=== PATIENT | male | born 1940 | race African-American/Black ===

== ENCOUNTER 2018-07-16 16:37 | Inpatient (IN) | payer OTHER ==
[2018-07-16 21:20] VITALS: BP 136/88; PULSE 98; RESP 18
--- NOTE | 2018-07-16 23:47 | HP ---
Date/Time of Note Date/Time of Note DATE: 07/16/18 TIME: 23:47 Assessment/Plan VTE Prophylaxis Pharmacological prophylaxis: heparin Assessment/Plan Hospital Course This is a 77-year-old male [facility]: #1 right lower extremity cellulitis: Appears resolved as I do not see any evidence of swelling or erythema or redness. At the current time we will co ntinue Keflex 500 mg p.o. every 6 hours, he recently started this on 07/15 for a total 7-day regimen. 2. 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 This is thought to be secondary to small vessel disease in setting of his hypertension hyperlipidemia. Patient will schedule as an outpatient to have a TTE on 08/04/2018 and MRA of the neck. He is otherwise stroke workup was done and PT OT saw the patient in signed off on him and noted that the patient requires supervision. PT OT in their note at the transfer facility reported: At this point patient appears to require supervision with daily activities due to impulsiveness and risk of falls and will require placement. Continue aspirin and statin. Further neurological workup and TTE and MRI as an outpatient. Next History of choreoathetotic movements chronic: Apparently patient has been having orthotic movement for the last 5 years. Recommend patch the left eye. Dementia: MRI of the brain showed global decrease in cortex. Apparently as per the note patient did not require assistance with ADLs. But does require supervision. BPH: Continue tamsulosin CKD stage II creatinine baseline was 1.1. Hyperlipidemia: Continue statin DVT GI prophylaxis: Heparin subcu, no GI prophylaxis indicated Disposition: PTT/OT and social work consult for placement. Continue antibiotics. Next Further treatment strategy will be implemented as per the clinical course. HPI/ROS Admit Date/Time Admit Date/Time Jul 16, 2018 at 21:06 Hx of Present Illness Chief complaint sent by [facility] for cellulitis and placement The following history was obtained from the chart documentation as patient himself was not able to provide adequate history given his history of dementia as well as current somnolent states given that he received Ativan prior to him being transferred. This is a 77-year-old male with a medical history of left midbrain stroke and cranial nerve III palsy hypertension, CKD stage II hyperlipidemia and dementia who originally presented to [facility] emergency room with complaints of right lower leg swelling times several weeks. He was reporting at that time that her he is homeless based on the documentation. Based on the charting the patient had been admitted to [facility] for an extended period of time and discharged on 06/10. Patient apparently had reported that he had increased swelling and erythema over the last few days but it was unclear for how long he had. He denied any fevers chills nausea vomiting or cough. Patient was able to ambulate there and he was alert and oriented x2 at baseline. Based on the chart documentation patient was last admitted on 01/2018 through 11/2017 to [facility] for chronic dizziness. He was cleared by PT/OT for assist device and the original plan was to have social work to find placement for him due to cognitive impairment however because the surgeon due to being too long he was discharged to a group home. Apparently based on the social work note on 05/27/122017 the and medicine team there was planning to sign conservatorship form for the patient. He had reported to them that he had apparently not taken any medications for 3 months. When he arrived to the emergency department he was afebrile and hemodynamically stable. He was nontoxic-appearing. He had right lower extremity erythema involving the great toe to the lower leg with mild edema proximally. He was started on Keflex for cellulitis. He had a negative CRP lactate and leukocytosis. 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 He has been homeless for the last year and has been living out of his truck. He reports that he requires help with ADLs. ROS Subjective hx not possible: other (Somnolent, arousable but not able to provide information at the current time) PMH/Family/Social Past Medical History Dementia, hypertension, hyperlipidemia, multiple UTIs, BPH, movement disorder, and left midbrain stroke with residual cranial nerves III and palsy. 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 He has been homeless for the last year and has been living out of his truck. He reports that he requires help with ADLs. Smoking Status: Unknown if ever smoked Exam/Review of Systems Vital Signs Vitals Vital Signs Date Temp Pulse Resp B/P (MAP) Pulse Ox O2 O2 Flow FiO2 Time Delivery Rate 07/16/18 97.7 98 18 136/88 98 21:20 (104) Exam Exam General: Patient is currently lying in bed he does not appear to be in any acute distress. He is somnolent but arousable however not currently answering questions. HEENT: Atraumatic, normocephalic. Unable to assess palsy as patient at the current time is not allowing to open his eyes. Neck: Supple with full range of motion. No rigidity or meningismus Chest: Nontender Lungs: Clear to auscultation bilaterally no crackles rales or wheezing Heart: Normal S1-S2, Regular rhythm and rate. Abdomen: Soft , nontender, nondistended , bowel sounds are present. No guarding no rebound tenderness , No masses or organomegaly. No costovertebral temporal angle mass Extremities: Normal to inspection, no edema no cyanosis Skin: Right lower extremity cellulitis appears to have resolved as I do not notice any swelling or erythema or redness or tenderness to palpation along the described site from the transferring hospital. Neurologic: Somnolent but arousable. Unable to perform full neurological examination as patient is somnolent and not allowing for neurological examination. JACQUES DENNIS Jul 16, 2018 23:47
[2018-07-17] MEDS ORDERED: NACL 0.9% 3 ML SYG IV SCH
[2018-07-17] MEDS ORDERED: ONDANSETRON 4 MG INJ IV PRN
[2018-07-17] MEDS ORDERED: ACETAMINOPHEN 325 MG TAB PO PRN
[2018-07-17] MEDS ORDERED: BISACODYL (EC) 5 MG TAB PO PRN
[2018-07-17] MEDS ORDERED: DOCUSATE SODIUM 100 MG CAP PO PRN
[2018-07-17] MEDS ORDERED: CEPHALEXIN 500 MG CAP PO SCH (00:30)
[2018-07-17] MEDS: HEPARIN 5,000 UNIT/1 ML VIAL SC SCH ×4 (01:14→22:30)
[2018-07-17 02:00] VITALS: BP 109/56; PULSE 89; RESP 18
[2018-07-17] MEDS: CEPHALEXIN 500 MG CAP PO SCH ×3 (02:50→11:57)
[2018-07-17] MEDS ORDERED: HALOPERIDOL 5 MG INJ IM ONE (04:30)
[2018-07-17 08:41] VITALS: BP 135/73; PULSE 104; RESP 18
--- NOTE | 2018-07-17 14:35 | PN ---
Date/Time of Note Date/Time of Note DATE: 07/17/18 TIME: 14:33 Assessment/Plan VTE Prophylaxis Risk score (from Ns)>0 risk: 4 SCD applied (from Ns): Yes Pharmacological prophylaxis: heparin Lines/Catheters Urinary Cath still in place: No Assessment/Plan Hospital Course 77 yo male with h/o vascular dementia admitted for placement - dc abx - CM consult for placement vascular dementia s/p CVA: - Continue aspirin and statin, BP control Result Diagram: 07/17/18 0026 07/17/18 0026 Results 24hrs Laboratory Tests Test 07/17/18 00:26 White Blood Count 7.6 Red Blood Count 4.09 L Hemoglobin 13.4 L Hematocrit 39.4 L Mean Corpuscular Volume 96.3 Mean Corpuscular Hemoglobin 32.8 Mean Corpuscular Hemoglobin Concent 34.0 Red Cell Distribution Width 11.6 Platelet Count 235 Mean Platelet Volume 9.4 Immature Granulocytes % 0.400 Neutrophils % 65.2 Lymphocytes % 21.9 Monocytes % 10.8 Eosinophils % 1.2 Basophils % 0.5 Nucleated Red Blood Cells % 0.0 Immature Granulocytes # 0.030 Neutrophils # 5.0 Lymphocytes # 1.7 Monocytes # 0.8 Eosinophils # 0.1 Basophils # 0.0 Nucleated Red Blood Cells # 0.0 Sodium Level 138 Potassium Level 4.0 Chloride Level 101 Carbon Dioxide Level 27 Anion Gap 10 Blood Urea Nitrogen 16 Creatinine 0.79 Est Glomerular Filtrat Rate mL/min Glucose Level 139 Hemoglobin A1c 6.3 H Calcium Level 9.2 Magnesium Level 2.0 Total Bilirubin 0.4 Direct Bilirubin 0.00 Indirect Bilirubin 0.4 Aspartate Amino Transf (AST/SGOT) 35 Alanine Aminotransferase (ALT/SGPT) 30 Alkaline Phosphatase 58 Total Protein 7.4 Albumin 3.7 Globulin 3.70 H Albumin/Globulin Ratio 1.00 Triglycerides Level 98 Cholesterol Level 167 LDL Cholesterol, Calculated 96 HDL Cholesterol 51 Cholesterol/HDL Ratio 3.2 Thyroid Stimulating Hormone (TSH) 0.297 L Subjective 24 Hr Interval Summary Free Text/Dictation no complaints comfortable Exam/Review of Systems Vital Signs Vitals Vital Signs Date Temp Pulse Resp B/P (MAP) Pulse Ox O2 O2 Flow FiO2 Time Delivery Rate 07/17/18 98.3 104 18 135/73 94 08:41 (93) Intake and Output 07/16/18 07/16/18 07/17/18 1515:00 23:00 07:00 IntakeIntake Total 50 ml BalanceBalance 50 ml Medications Medications Current Medications IV Flush (NS 3 ml) 3 ml PER PROTOCOL IV ; Start 07/17/18 at 00:00 Ondansetron HCl (Zofran Inj) 4 mg Q6H PRN IV NAUSEA AND/OR VOMITING; Start 07/17/18 at 00:00 Acetaminophen (Tylenol Tab) 650 mg Q6H PRN PO PAIN LEVEL 1-3 OR FEVER; Start 07/17/18 at 00:00 Docusate Sodium (Colace) 100 mg Q12H PRN PO CONSTIPATION; Start 07/17/18 at 00:00 Bisacodyl (Dulcolax) 5 mg DAILY PRN PO CONSTIPATION; Start 07/17/18 at 00:00 Heparin Sodium (Porcine) (Heparin (5000 Units/1ml)) 5,000 unit Q8 SC Last admi nistered on 07/17/18at 13:50; Admin Dose 5,000 UNIT; Start 07/17/18 at 00:00 Cephalexin (Keflex) 500 mg Q6 PO Last administered on 07/17/18at 11:57; Admin Dose 500 MG; Start 07/17/18 at 02:31 Influenza Virus Vaccine Quadrival (Fluzone) 0.5 ml ONCE ONCE IM* ; Start 07/18/18 at 10:00; Stop 07/18/18 at 10:01 Miscellaneous Information Patients own medicat... BID@ XX ; Start 07/17/18 at 16:00 DESIRE CHENG MD Jul 17, 2018 14:35
[2018-07-17 14:46] VITALS: BP 132/77; PULSE 85; RESP 19
[2018-07-17] MEDS: ASPIRIN 81 MG TAB PO SCH (15:14)
[2018-07-17] MEDS: QUETIAPINE 25 MG TAB PO SCH ×2 (15:14→22:30)
[2018-07-17] MEDS: ATORVASTATIN 40 MG TAB PO SCH (20:17)
[2018-07-17 20:23] VITALS: BP 140/65; PULSE 83; RESP 20
[2018-07-18 02:06] VITALS: BP 129/60; PULSE 80; RESP 18
[2018-07-18] MEDS: HEPARIN 5,000 UNIT/1 ML VIAL SC SCH ×3 (06:24→21:30)
[2018-07-18 07:55] VITALS: BP 131/86; PULSE 84; RESP 18
[2018-07-18] MEDS: ASPIRIN 81 MG TAB PO SCH (10:08)
[2018-07-18] MEDS: QUETIAPINE 25 MG TAB PO SCH ×2 (10:08→20:37)
--- NOTE | 2018-07-18 11:57 | PSY ---
Date/Time of Note Date/Time of Note DATE: 07/18/18 TIME: 11:53 Psychiatric Subjective Eval Consent Pt consented to telemedicine: No Subjective Evaluation Patient location: inpatient History of present illness Patient is a 77-year-old male with a medical history of stroke, hypertension, CKD stage II and hyperlipidemia. [id number] evaluation, patient is disorganized confused goes up from times and cannot process information. Patient is in poor contact with reality Past psychiatric history Patient is a poor historian and does not know if he has any history of mental illness Allergies: Coded Allergies: Unknown: Unable to obtain (Unverified , 07/16/18) Substance Abuse Substance use: other (Unknown) Substance abuse history: No Social History Marital status: other Psychiatric Objective Eval Review of Systems: Review of Systems: Not Applicable Physical Examination: Appetite: Adequate Energy: Adequate Mental Status Examination: Appearance: Poor Hygiene Psychomotor Activity: Slow Behavior: Suspicious Speech: Soft, Disorganized AFFECT: Anxious Though Process: Tangential Orientation: x2 Attention Span: Distractible Laboratory Results Laboratory Tests Test 07/17/18 00:26 White Blood Count 7.6 10^3/ul Red Blood Count 4.09 10^6/ul Hemoglobin 13.4 g/dl Hematocrit 39.4 % Mean Corpuscular Volume 96.3 fl Mean Corpuscular Hemoglobin 32.8 pg Mean Corpuscular Hemoglobin Concent 34.0 g/dl Red Cell Distribution Width 11.6 % Platelet Count 235 10^3/UL Mean Platelet Volume 9.4 fl Immature Granulocytes % 0.400 % Neutrophils % 65.2 % Lymphocytes % 21.9 % Monocytes % 10.8 % Eosinophils % 1.2 % Basophils % 0.5 % Nucleated Red Blood Cells % 0.0 /100WBC Immature Granulocytes # 0.030 10^3/ul Neutrophils # 5.0 10^3/ul Lymphocytes # 1.7 10^3/ul Monocytes # 0.8 10^3/ul Eosinophils # 0.1 10^3/ul Basophils # 0.0 10^3/ul Nucleated Red Blood Cells # 0.0 10^3/ul Sodium Level 138 mmol/L Potassium Level 4.0 mmol/L Chloride Level 101 mmol/L Carbon Dioxide Level 27 mmol/L Anion Gap 10 Blood Urea Nitrogen 16 mg/dl Creatinine 0.79 mg/dl Est Glomerular Filtrat Rate mL/min mL/min Glucose Level 139 mg/dl Hemoglobin A1c 6.3 % Calcium Level 9.2 mg/dl Magnesium Level 2.0 mg/dl Total Bilirubin 0.4 mg/dl Direct Bilirubin 0.00 mg/dl Indirect Bilirubin 0.4 mg/dl Aspartate Amino Transf (AST/SGOT) 35 IU/L Alanine Aminotransferase (ALT/SGPT) 30 IU/L Alkaline Phosphatase 58 IU/L Total Protein 7.4 g/dl Albumin 3.7 g/dl Globulin 3.70 g/dl Albumin/Globulin Ratio 1.00 Triglycerides Level 98 mg/dl Cholesterol Level 167 mg/dl LDL Cholesterol, Calculated 96 mg/dl HDL Cholesterol 51 mg/dl Cholesterol/HDL Ratio 3.2 RATIO Thyroid Stimulating Hormone (TSH) 0.297 MIU/L Assessment and Plan Assessment/Diagnosis Diagnosis Dementia without behavioral disturbance Recommendation/Plan Medication Management Seroquel 25 mg twice daily Multiple antipsychotics: No Discharge Disposition: Other Legal Status: Voluntary (Meets criteria for 5150 hold) MATTHEW MARCOS NP Jul 18, 2018 11:57
[2018-07-18 14:00] VITALS: BP 126/73; PULSE 104; RESP 18
--- NOTE | 2018-07-18 17:19 | PN ---
Date/Time of Note Date/Time of Note DATE: 07/18/18 TIME: 17:18 Assessment/Plan VTE Prophylaxis Risk score (from Ns)>0 risk: 5 SCD applied (from Ns): Yes Pharmacological prophylaxis: heparin Lines/Catheters Urinary Cath still in place: No Assessment/Plan Hospital Course 77 yo male with h/o vascular dementia admitted for placement - dc abx - CM consult for placement vascular dementia s/p CVA: - Continue aspirin and statin, BP control Seroquel for agitation Ready for discharge pending placement Result Diagram: 07/17/18 0026 07/17/18 0026 Subjective 24 Hr Interval Summary Free Text/Dictation Seen by psych with recommendatino to continue Seroquel 25 BID Exam/Review of Systems Vital Signs Vitals Vital Signs Date Temp Pulse Resp B/P (MAP) Pulse Ox O2 O2 Flow FiO2 Time Delivery Rate 07/18/18 98.1 104 18 126/73 98 Room Air 14:00 (90) Intake and Output 07/17/18 07/17/18 07/18/18 1515:00 23:00 07:00 IntakeIntake Total 720 ml 120 ml 460 ml OutputOutput Total 200 ml 400 ml BalanceBalance 520 ml -280 ml 460 ml Medications Medications Current Medications IV Flush (NS 3 ml) 3 ml PER PROTOCOL IV ; Start 07/17/18 at 00:00 Ondansetron HCl (Zofran Inj) 4 mg Q6H PRN IV NAUSEA AND/OR VOMITING; Start 05/25 at 00:00 Acetaminophen (Tylenol Tab) 650 mg Q6H PRN PO PAIN LEVEL 1-3 OR FEVER; Start 07/17/18 at 00:00 Docusate Sodium (Colace) 100 mg Q12H PRN PO CONSTIPATION; Start 07/17/18 at 00:00 Bisacodyl (Dulcolax) 5 mg DAILY PRN PO CONSTIPATION; Start 07/17/18 at 00:00 Heparin Sodium (Porcine) (Heparin (5000 Units/1ml)) 5,000 unit Q8 SC Last administered on 07/18/18at 13:46; Admin Dose 5,000 UNIT; Start 07/17/18 at 00:00 Miscellaneous Information Patients own medicat... BID@10,16 XX ; Start 07/17/18 at 16:00 Quetiapine Fumarate (Seroquel) 25 mg BID PO Last administered on 07/18/18at 10:08; Admin Dose 25 MG; Start 07/17/18 at 15:00 Aspirin (Aspirin) 81 mg DAILY PO Last administered on 07/18/18 10:08; Admin Dose 81 MG; Start 07/17/18 at 15:00 Atorvastatin Calcium (Lipitor) 40 mg HS PO Last administered on 07/17/18at 20:17; Admin Dose 40 MG; Start 07/17/18 at 21:00 DESIRE CHENG MD Jul 18, 2018 17:19
[2018-07-18 20:00] VITALS: BP 121/67; PULSE 79; RESP 18
[2018-07-18] MEDS: ATORVASTATIN 40 MG TAB PO SCH (20:37)
[2018-07-19 02:00] VITALS: BP 134/73; RESP 18
[2018-07-19] MEDS: HEPARIN 5,000 UNIT/1 ML VIAL SC SCH ×3 (05:33→21:03)
[2018-07-19 08:00] VITALS: BP_SYST 150; BP_SYST 89; BP_DIAS 62; PULSE 89; RESP 18
[2018-07-19] MEDS: QUETIAPINE 25 MG TAB PO SCH ×2 (08:48→21:01)
[2018-07-19] MEDS: ASPIRIN 81 MG TAB PO SCH (08:48)
[2018-07-19 14:00] VITALS: BP 141/91; PULSE 89; RESP 18
--- NOTE | 2018-07-19 15:41 | PN ---
Date/Time of Note Date/Time of Note DATE: 07/19/18 TIME: 15:41 Assessment/Plan VTE Prophylaxis [place] [facility] risk: 4 [place]CD applied [place] [facility] Yes Pharmacological prophylaxis: heparin Lines/Catheters Urinary Cath still in place: No Assessment/Plan Hospital Course 77 yo male with h/o vascular dementia admitted for placement - dc abx no indication - CM consult for placement vascular dementia s/p CVA: - Continue aspirin and statin, BP control Seroquel for agitation Ready for discharge pending placement Result Diagram: 07/17/18 0026 07/17/18 0026 Subjective 24 Hr Interval Summary Free Text/Dictation No change to clinical status Behavior well controlled Exam/Review of Systems Vital Signs Vitals Vital Signs Date Temp Pulse Resp B/P (MAP) Pulse Ox O2 O2 Flow FiO2 Time Delivery Rate 07/19/18 98.0 89 18 141/91 93 Room Air 14:00 (108) Intake and Output 07/18/18 07/18/18 07/19/18 1414:59 22:59 06:59 IntakeIntake Total 640 ml 358 ml BalanceBalance 640 ml 358 ml Medications Medications Current Medications IV Flush (NS 3 ml) 3 ml PER PROTOCOL IV ; Start 07/17/18 at 00:00 Ondansetron HCl (Zofran Inj) 4 mg Q6H PRN IV NAUSEA AND/OR VOMITING; Start 07/17/18 at 00:00 Acetaminophen (Tylenol Tab) 650 mg Q6H PRN PO PAIN LEVEL 1-3 OR FEVER; Start 07/17/18 at 00:00 Docusate Sodium (Colace) 100 mg Q12H PRN PO CONSTIPATION; Start 07/17/18 at 00:00 Bisacodyl (Dulcolax) 5 mg DAILY PRN PO CONSTIPATION; Start 07/17/18 at 00:00 Heparin Sodium (Porcine) (Heparin (5000 Units/1ml)) 5,000 unit Q8 SC Last administered on 07/19/18at 13:16; Admin Dose 5,000 UNIT; Start 07/17/18 at 00:00 Miscellaneous Information Patients own medicat... BID@10,16 XX ; Start 07/17/18 at 16:00 Quetiapine Fumarate (Seroquel) 25 mg BID PO Last administered on 07/19/18at 08:48; Admin Dose 25 MG; Start 07/17/18 at 15:00 Aspirin (Aspirin) 81 mg DAILY PO Last administered on 07/19/18 08:48; Admin Dose 81 MG; Start 07/17/18 at 15:00 Atorvastatin Calcium (Lipitor) 40 mg HS PO Last administered on 07/18/18 20:37; Admin Dose 40 MG; Start 07/17/18 at 21:00 DESIRE CHENG MD Jul 19, 2018 15:41
[2018-07-19 19:27] VITALS: BP 127/75; PULSE 80; RESP 18
[2018-07-19] MEDS: ATORVASTATIN 40 MG TAB PO SCH (21:01)
[2018-07-20 02:00] VITALS: BP 147/81; PULSE 83; RESP 18
[2018-07-20] MEDS: HEPARIN 5,000 UNIT/1 ML VIAL SC SCH ×2 (05:45→14:49)
[2018-07-20 07:29] VITALS: BP 137/79; PULSE 85; RESP 16
[2018-07-20] MEDS: QUETIAPINE 25 MG TAB PO SCH ×2 (09:13→20:07)
[2018-07-20] MEDS: ASPIRIN 81 MG TAB PO SCH (09:13)
--- NOTE | 2018-07-20 15:10 | PN ---
Date/Time of Note Date/Time of Note DATE: 07/20/18 TIME: 15:08 Assessment/Plan VTE Prophylaxis Risk score (from Nsg)>0 risk: 3 Pharmacological prophylaxis: LMWH Lines/Catheters Urinary Cath still in place: No Assessment/Plan Hospital Course 1. Vascular dementia manager acute to arrange for placement Continue aspirin and statin, BP control Seroquel for agitation Prophylaxis: Lovenox DC planning: Waiting for placement Result Diagram: 07/17/18 0026 07/17/18 0026 Subjective 24 Hr Interval Summary Constitutional: no complaints Exam/Review of Systems Vital Signs Vitals Vital Signs Date Temp Pulse Resp B/P (MAP) Pulse Ox O2 O2 Flow FiO2 Time Delivery Rate 07/20/18 97.6 85 16 137/79 98 Room Air 07:29 (98) Intake and Output 07/19/18 07/19/18 07/20/18 1515:00 23:00 07:00 IntakeIntake Total 760 ml BalanceBalance 760 ml Exam Constitutional: alert Respiratory: clear to auscultation Cardiovascular: regular rate and rhythm Gastrointestinal: soft; No distended Musculoskeletal: nl extremities to inspection Medications Medications Current Medications IV Flush (NS 3 ml) 3 ml PER PROTOCOL IV ; Start 07/17/18 at 00:00 Ondansetron HCl (Zofran Inj) 4 mg Q6H PRN IV NAUSEA AND/OR VOMITING; Start 05/25 at 00:00 Acetaminophen (Tylenol Tab) 650 mg Q6H PRN PO PAIN LEVEL 1-3 OR FEVER; Start 07/17/18 at 00:00 Docusate Sodium (Colace) 100 mg Q12H PRN PO CONSTIPATION; Start 07/17/18 at 00:00 Bisacodyl (Dulcolax) 5 mg DAILY PRN PO CONSTIPATION; Start 07/17/18 at 00:00 Heparin Sodium (Porcine) (Heparin (5000 Units/1ml)) 5,000 unit Q8 SC Last administered on 07/20/18at 14:49; Admin Dose 5,000 UNIT; Start 07/17/18 at 00:00 Miscellaneous Information Patients own medicat... BID@10,16 XX ; Start 07/17/18 at 16:00 Quetiapine Fumarate (Seroquel) 25 mg BID PO Last administered on 07/20/18at 09:13; Admin Dose 25 MG; Start 07/17/18 at 15:00 Aspirin (Aspirin) 81 mg DAILY PO Last administered on 07/20/18at 09:13; Admin Dose 81 MG; Start 07/17/18 at 15:00 Atorvastatin Calcium (Lipitor) 40 mg HS PO Last administered on 07/19/18at 21:01; Admin Dose 40 MG; Start 07/17/18 at 21:00 LORI BOYKIN Jul 20, 2018 15:10
[2018-07-20] MEDS: ATORVASTATIN 40 MG TAB PO SCH (20:07)
[2018-07-20 20:08] VITALS: BP 140/72; PULSE 74; RESP 18
[2018-07-21 03:03] VITALS: BP 136/76; PULSE 75; RESP 18
[2018-07-21 07:41] VITALS: BP 138/77; PULSE 77; RESP 16
[2018-07-21] MEDS: ASPIRIN 81 MG TAB PO SCH (08:12)
[2018-07-21] MEDS: QUETIAPINE 25 MG TAB PO SCH ×2 (08:12→21:01)
[2018-07-21] MEDS: ENOXAPARIN 40 MG/0.4 ML SYG SC SCH (08:14)
[2018-07-21 13:44] VITALS: BP 112/79; PULSE 102; RESP 18
--- NOTE | 2018-07-21 14:03 | PN ---
Date/Time of Note Date/Time of Note DATE: 07/21/18 TIME: 14:01 Assessment/Plan VTE Prophylaxis Risk score (from Nsg)>0 risk: 2 Pharmacological prophylaxis: LMWH Lines/Catheters Urinary Cath still in place: No Assessment/Plan Hospital Course 1. 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 Continue aspirin and statin, BP control Seroquel for agitation Prophylaxis: Lovenox DC planning: Waiting for placement Result Diagram: 07/17/18 0026 07/17/18 0026 Subjective 24 Hr Interval Summary Constitutional: no complaints Exam/Review of Systems Vital Signs Vitals Vital Signs Date Temp Pulse Resp B/P (MAP) Pulse Ox O2 O2 Flow FiO2 Time Delivery Rate 07/21/18 98.8 102 18 112/79 99 Room Air 13:44 (90) Intake and Output 07/20/18 07/20/18 07/21/18 1515:00 23:00 07:00 IntakeIntake Total 240 ml BalanceBalance 240 ml Exam Constitutional: alert, oriented Respiratory: clear to auscultation Cardiovascular: regular rate and rhythm Gastrointestinal: soft; No distended Musculoskeletal: nl extremities to inspection Medications Medications Current Medications IV Flush (NS 3 ml) 3 ml PER PROTOCOL IV ; Start 07/17/18 at 00:00 Ondansetron HCl (Zofran Inj) 4 mg Q6H PRN IV NAUSEA AND/OR VOMITING; Start 07/17/18 at 00:00 Acetaminophen (Tylenol Tab) 650 mg Q6H PRN PO PAIN LEVEL 1-3 OR FEVER; Start 07/17/18 at 00:00 Docusate Sodium (Colace) 100 mg Q12H PRN PO CONSTIPATION; Start 07/17/18 at 0 0:00 Bisacodyl (Dulcolax) 5 mg DAILY PRN PO CONSTIPATION; Start 07/17/18 at 00:00 Miscellaneous Information Patients own medicat... BID@,16 XX ; Start 07/17/18 at 16:00 Quetiapine Fumarate (Seroquel) 25 mg BID PO Last administered on 07/21/18at 08:12; Admin Dose 25 MG; Start 07/17/18 at 15:00 Aspirin (Aspirin) 81 mg DAILY PO Last administered on 07/21/18at 08:12; Admin Dose 81 MG; Start 1/11/19 at 15:00 Atorvastatin Calcium (Lipitor) 40 mg HS PO Last administered on 07/20/18at 20:07; Admin Dose 40 MG; Start 07/17/18 at 21:00 Enoxaparin Sodium (Lovenox) 40 mg DAILY SC Last administered on 07/21/18at 08:14; Admin Dose 40 MG; Start 07/21/18 at 09:00 LORI BOYKIN Jul 21, 2018 14:03
[2018-07-21 19:57] VITALS: BP 141/71; PULSE 79; RESP 18
[2018-07-21] MEDS: ATORVASTATIN 40 MG TAB PO SCH (21:01)
[2018-07-22 02:26] VITALS: BP 124/56; PULSE 71; RESP 18
[2018-07-22] MEDS: QUETIAPINE 25 MG TAB PO SCH (08:53)
[2018-07-22] MEDS: ASPIRIN 81 MG TAB PO SCH (08:53)
[2018-07-22] MEDS: ENOXAPARIN 40 MG/0.4 ML SYG SC SCH (08:58)
--- NOTE | 2018-07-22 12:13 | PN ---
Date/Time of Note Date/Time of Note DATE: 07/22/18 TIME: 12:12 Assessment/Plan VTE Prophylaxis Risk score (from Nsg)>0 risk: 3 Pharmacological prophylaxis: LMWH Lines/Catheters Urinary Cath still in place: No Assessment/Plan Hospital Course 1. Vascular dementia assessment services manager to arrange for placement Continue aspirin and statin, BP control Seroquel for agitation Prophylaxis: Lovenox DC planning: Waiting for placement Subjective 24 Hr Interval Summary Constitutional: no complaints Exam/Review of Systems Vital Signs Vitals Vital Signs Date Temp Pulse Resp B/P (MAP) Pulse Ox O2 O2 Flow FiO2 Time Delivery Rate 07/22/18 97.9 71 18 124/56 93 02:26 (78) 07/21/18 Room Air 13:44 Exam Constitutional: alert Psych: confusion Respiratory: clear to auscultation Cardiovascular: regular rate and rhythm Gastrointestinal: soft; No distended Musculoskeletal: nl extremities to inspection Medications Medications Current Medications IV Flush (NS 3 ml) 3 ml PER PROTOCOL IV ; Start 07/17/18 at 00:00 Ondansetron HCl (Zofran Inj) 4 mg Q6H PRN IV NAUSEA AND/OR VOMITING; Start 07/17/18 at 00:00 Acetaminophen (Tylenol Tab) 650 mg Q6H PRN PO PAIN LEVEL 1-3 OR FEVER; Start 07/17/18 at 00:00 Docusate Sodium (Colace) 100 mg Q12H PRN PO CONSTIPATION; Start 07/17/18 at 00:00 Bisacodyl (Dulcolax) 5 mg DAILY PRN PO CONSTIPATION; Start 07/17/18 at 00:00 Miscellaneous Information Patients own medicat... BID@ XX ; Start 07/17/18 at 16:00 Quetiapine Fumarate (Seroquel) 25 mg BID PO Last administered on 07/22/18at 08:53; Admin Dose 25 MG; Start 07/17/18 at 15:00 Aspirin (Aspirin) 81 mg DAILY PO Last administered on 07/22/18at 08:53; Admin Dose 81 MG; Start 07/17/18 at 15:00 Atorvastatin Calcium (Lipitor) 40 mg HS PO Last administered on 07/21/18at 21:01; Admin Dose 40 MG; Start 07/17/18 at 21:00 Enoxaparin Sodium (Lovenox) 40 mg DAILY SC Last administered on 07/22/18at 08:58; Admin Dose 40 MG; Start 07/21/18 at 09:00 LORI BOYKIN Jul 22, 2018 12:12
[2018-07-22 14:00] VITALS: BP 122/79; PULSE 88; RESP 18
[2018-07-22] MEDS ORDERED: ATOR40TA68 PO (15:57)
[2018-07-22] MEDS ORDERED: ASPI-831 PO (15:57)
[2018-07-22] MEDS ORDERED: QUET25TA33 PO (15:57)
--- NOTE | 2018-07-22 16:03 | DS ---
Date/Time of Note Date/Time of Note DATE: 07/22/18 TIME: 16:01 Discharge Summary Admission/Discharge Info Admit Date/Time Jul 16, 2018 at 21:06 Discharge Date/Time July 22, 2018 Discharge Diagnosis 1. Vascular dementia DC with aspirin and statin Seroquel for agitation DC to recuperative care Patient Condition: Good Hospital Course Patient is a 77-year-old male with a history of vascular dementia, patient was started on aspirin statin as well as Seroquel for agitation. recreation facility manager did arrange for placement in a recuperative care, on the day of discharge patient's vitals, labs of exam are stable patient has no acute complaints questions are answered. Home Meds Active Scripts Quetiapine Fumarate* (Quetiapine Fumarate*) 25 Mg Tablet, 25 MG PO BID, #60 TAB 1 Refill Prov:LORI BOYKIN 07/22/18 Aspirin (Aspirin) 81 Mg Chew, 81 MG PO DAILY, #60 TAB Prov:LORI BOYKIN 07/22/18 Atorvastatin* (Atorvastatin*) 40 Mg Tablet, 40 MG PO HS, #60 TAB Prov:LORI BOYKIN 07/22/18 Follow-up Plan Follow-up with physicians at the facility Primary Care Provider Not On Staff Doctor Time spent on discharge: > 30 minutes LORI BOYKIN Jul 22, 2018 16:03
--- NOTE | 2018-07-22 16:07 | CONS ---
Date/Time of Note Date/Time of Note DATE: 07/22/18 TIME: 16:04 Consult Date/Type/Reason Admit Date Jul 16, 2018 at 21:06 Type of Consult Psych Subjective [id number]-[id number] evaluation, patient is alert with periods forgetfulness. Patient is discharging to SNF, He denies suicidal ideation, and homicidal ideation, he does not meet criteria for 5150 hold.. Objective Patient Appearance: Appropriate dress Voice Loudness: Mildly Soft/Quiet Mood and Affect Description: Cooperative Mood or Affect: Cooperative Speech Pattern: Clear Hallucination Type: None Delusion Description: Not Present MATTHEW MARCOS NP Jul 22, 2018 16:07
== END 2018-07-22 17:49 | disposition other institution (70) | DRG 884 ==
LOC: PP2 21:06 → 5EC 07-18 06:57
PROVIDERS: ADMIT Internal Medicine; ATTEND Internal Medicine
DX: F01.50 Vascular dementia, unspecified severity, without behavioral disturbance, psychotic disturbance, mood disturbance, and anxiety (principal); L03.115 Cellulitis of right lower limb; I12.9 Hypertensive chronic kidney disease with stage 1 through stage 4 chronic kidney disease, or unspecified chronic kidney disease; N18.3 Chronic kidney disease, stage 3 (moderate); N40.0 Benign prostatic hyperplasia without lower urinary tract symptoms; E78.5 Hyperlipidemia, unspecified
CPT/HCPCS: 80053; 80061; 83036; 83735; 84443; 85025; 87081; 90686; 97110; 97116; 97162; 97166; 97530; J1630; J1644; J1650

== ENCOUNTER 2018-12-28 17:04 | Inpatient (IN) | payer OTHER ==
[~2018-12-28] VITALS: Ht 166.9 cm; Wt 70.0 kg
[~2018-12-28 17:04] MED LIST: ASPI-831 PO; ATOR40TA68 PO; QUET25TA33 PO
[2018-12-29] VITALS (11 sets, daily range): BP systolic 128–147; BP diastolic 58–81; PULSE 70–99; RESP 18–20
[2018-12-29] MEDS ORDERED: SOD CHLORIDE 0.9% 1,000 ML IV SCH (00:31)
[2018-12-29] MEDS ORDERED: HALOPERIDOL 5 MG INJ IM STA (00:57)
[2018-12-29] MEDS ORDERED: LORAZEPAM 2 MG INJ IV STA (00:57)
[2018-12-29] MEDS ORDERED: NACL 0.9% 3 ML SYG IV SCH (01:00)
[2018-12-29] MEDS ORDERED: BISACODYL (EC) 5 MG TAB PO PRN (01:00)
[2018-12-29] MEDS ORDERED: ACETAMINOPHEN 325 MG TAB PO PRN (01:00)
[2018-12-29] MEDS ORDERED: DOCUSATE SODIUM 100 MG CAP PO PRN (01:00)
[2018-12-29] MEDS ORDERED: LORAZEPAM 2 MG INJ ONE (01:02)
--- NOTE | 2018-12-29 01:48 | HP ---
Date/Time of Note Date/Time of Note DATE: 12/29/18 TIME: 01:48 Assessment/Plan VTE Prophylaxis SCD applied (from Ns): Yes Pharmacological prophylaxis: NA/contraindicated Pharm contraindication: low risk/ambulating Assessment/Plan Hospital Course This is a 78-year-old male being admitted to the telemetry floor for: 1.Acute on subacute bilateral subdural hemorrhage: CT on 12/27 showed acute on subacute bilateral subdural hemorrhage, measuring 6 mm thick on the left and 5 mm thick on the right. No midline shift. Repeat CT brain on 12/28 showed that the hemorrhage was stable. At the current time we will continue neuro checks every [address] in the a.m. keep systolic below 160. Will consult neurology dr. Burris. Continue keppra in the short term, further recs as per neurology. Consider neurosurgery consultation. 2. 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 At the current time we will continue statin. Will hold aspirin given patient's subdural hemorrhage. 3. History of choreoathetotic movements chronic: Apparently patient has been having orthotic movement for the last 5 years. Recommend patch the left eye. 4. Dementia: previous MRI of the brain showed global decrease in cortex. 5. BPH: Continue tamsulosin 6. CKD stage II creatinine baseline was 1.1. 7. Hyperlipidemia: Continue statin DVT GI prophylaxis: SCDs, no GI prophylaxis indicated Disposition: PT/OT evaluation. Further treatment strategy will be implemented as per the clinical course. HPI/ROS Admit Date/Time Admit Date/Time Dec 28, 2018 at 23:59 Hx of Present Illness Chief complaint sent by [facility] for cellulitis and placement The following history was obtained from the chart documentation as patient himself was not able to provide adequate history given his history of dementia and when patient arrived to [facility] he was very agitated as he apparently could not find his $400 that he had with him at the transferring hospital. The nurse did speak to the transferring facility and they do have the patient's money which was kept with his belongings, they will be arranging for the money to be transported here to the patient. History was obtained from the transfer documentation and previous EMR reports as patient is unable to provide adequate history given his dementia as well as agitation. This is a 78-year-old male with dementia, hypertension, CKD stage II, hyperlipidemia, dementia, and a previous midbrain stroke with residual cn3/CN palsy and a long-standing history of multiple falls due to underlying dizziness who presented to outside hospital after having a fall. In the emergency [facility] patient had a CT of the brain performed which showed evidence of bilateral subdural hematomas with a left side more hyperdense than the right. He was evaluated by neurosurgery and urology. No neurosurgical intervention was recommended at that time, patient was evaluated in the neurosurgical ICU. He was given a loading dose of Keppra as well as DDAVP as he did have aspirin use. He was started on Keppra 250 mg twice daily for seizure prophylaxis. He was monitored in the neurosurgical ICU where he had a repeat CT scan that was apparently stable. He was supposed to be downgraded to telemetry however given his insurance status he was transferred to [facility]. Allergies: NKDA Medications: Aspirin 81 mg daily Atorvastatin 40 mg p.o. daily Seroquel 25 mg p.o. twice daily ROS Subjective hx not possible: other (Agitated, medicated) PMH/Family/Social Past Medical History Dementia, hypertension, hyperlipidemia, multiple UTIs, BPH, movement disorder, and left midbrain stroke with residual cranial nerves III and palsy. Medications Current Medications Sodium Chloride 1,000 ml @ 70 mls/hr [id number] IV Last administered on 12/29/18at 01:12; Admin Dose 70 MLS/HR; Start 12/29/18 at 00:31 IV Flush (NS 3 ml) 3 ml PER PROTOCOL IV ; Start 12/29/18 at 01:00 Acetaminophen (Tylenol Tab) 650 mg Q6H PRN PO .PAIN 1-3 OR TEMP; Start 12/29/18 at 01:00 Docusate Sodium (Colace) 100 mg Q12H PRN PO .CONSTIPATION; Start 12/29/18 at 01:00 Bisacodyl (Dulcolax) 5 mg DAILY PRN PO .CONSTIPATION; Start 12/29/18 at 01:00 Coded Allergies: lisinopril (Verified Allergy, Severe, 12/29/18) Lip swelling Past Surgical History Unknown, unable to obtain history secondary to patient's clinical condition/de mentia Family History Significant Family History: other (Unknown, unable to obtain history secondary to patient's clinical condition/dementia) Social History Based on prior history in the EMR was born in [place] but he moved to [place] in 1977 and 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 He has been homeless for the last year and has been living out of his truck. Smoking Status: Unknown if ever smoked Exam/Review of Systems Vital Signs Vitals Temperature 98.9/heart rate 72/respiratory 20/blood pressure 138/79/pulse ox 94% on room air Exam Exam General: patient was agitated when he arrived as he was concerned regarding his money. He got up on his own to urinate and was assisted back into bed by RN. HEENT: Atraumatic, normocephalic. The pupils are equal, round and reactive. Extraocular motor are intact Neck: Supple with full range of motion. No rigidity or meningismus Chest: Nontender Lungs: Clear to auscultation bilaterally no crackles rales or wheezing Heart: Normal S1-S2, Regular rhythm and rate. No murmur, S3, or S4 Abdomen: Soft , nontender, nondistended , bowel sounds are present. No guarding no rebound tenderness , No masses or organomegaly. No costovertebral temporal angle mass Extremities: Normal to inspection, no edema no cyanosis Neurologic: awake. agitated. was able to walk on his own. Unable to perform full neuro exam given agitation and confusion. Additional Comments CT on 12/27 showed acute on subacute bilateral subdural hemorrhage, measuring 6 mm thick on the left and 5 mm thick on the right. No midline shift Repeat CT brain on 12/28 showed that the hemorrhage was stable. CT of the C- spine showed C3-C4 spondylolithiasis JACQUES DENNIS Dec 29, 2018 01:48
[2018-12-29] MEDS ORDERED: hydrALAzine 20 MG INJ IV PRN (06:00)
[2018-12-29] MEDS ORDERED: QUETIAPINE 25 MG TAB PO ONE (09:00)
[2018-12-29] MEDS: LEVETIRACETAM 250 MG TAB PO SCH ×2 (09:41→20:10)
--- NOTE | 2018-12-29 14:10 | PN ---
Date/Time of Note Date/Time of Note DATE: 12/29/18 TIME: 14:09 Assessment/Plan VTE Prophylaxis Risk score (from Nsg)>0 risk: 3 SCD applied (from Ns): Yes Pharmacological prophylaxis: NA/contraindicated, heparin Pharm contraindication: bleeding Lines/Catheters IV Catheter Type (from Nrsg): Peripheral IV Urinary Cath still in place: No Assessment/Plan Hospital Course 78 yo male with h/o cognitive impairment, h/o SDH who presented to [facility] after fal l. Found to have b/l SDH without midline shift. Nonoperative. Transferred to [facility] for optimizatoin and placement. 1. Acute on subacute bilateral subdural hemorrhage: CT on 12/27 showed acute on subacute bilateral subdural hemorrhage, measuring 6 mm thick on the left and 5 mm thick on the right. No midline shift. Repeat CT brain on 12/28 showed that the hemorrhage was stable. At the current time we will continue neuro checks every [address] opending. keep systolic below 160. Will consult neurology dr. Burris.. Consider neurosurgery consultation. 2. 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 At the current time we will continue statin. Will hold aspirin given patient's subdural hemorrhage. 3. History of choreoathetotic movements chronic: Apparently patient has been having orthotic movement for the last 5 years. Recommend patch the left eye. 4. Dementia: previous MRI of the brain showed global decrease in cortex. 5. BPH: Continue tamsulosin 6. CKD stage II creatinine baseline was 1.1. 7. Hyperlipidemia: Continue statin DVT GI prophylaxis: SCDs, no GI prophylaxis indicated Disposition: PT/OT evaluation. Further treatment strategy will be implemented as per the clinical course. Result Diagram: 12/29/18 1003 12/29/18 1003 Results 24hrs Laboratory Tests Test 12/29/18 10:03 White Blood Count 6.3 Red Blood Count 4.72 Hemoglobin 15.1 Hematocrit 44.0 Mean Corpuscular Volume 93.2 Mean Corpuscular Hemoglobin 32.0 Mean Corpuscular Hemoglobin Concent 34.3 Red Cell Distribution Width 12.2 Platelet Count 232 Mean Platelet Volume 9.5 Immature Granulocytes % 0.500 H Neutrophils % 54.3 Lymphocytes % 29.7 Monocytes % 12.9 H Eosinophils % 2.1 Basophils % 0.5 Nucleated Red Blood Cells % 0.0 Immature Granulocytes # 0.030 Neutrophils # 3.4 Lymphocytes # 1.9 Monocytes # 0.8 Eosinophils # 0.1 Basophils # 0.0 Nucleated Red Blood Cells # 0.0 Prothrombin Time 13.2 Prothrombin Time Ratio 1.0 INR International Normalized Ratio 0.99 Activated Partial Thromboplast Time 28.6 Sodium Level 141 Potassium Level 4.5 Chloride Level 105 Carbon Dioxide Level 29 Anion Gap 7 Blood Urea Nitrogen 14 Creatinine 0.94 Est Glomerular Filtrat Rate mL/min Glucose Level 115 Calcium Level 9.4 Magnesium Level 2.1 Total Bilirubin 0.8 Direct Bilirubin 0.00 Indirect Bilirubin 0.8 Aspartate Amino Transf (AST/SGOT) 42 Alanine Aminotransferase (ALT/SGPT) 23 Alkaline Phosphatase 62 Total Protein 8.0 Albumin 4.1 Globulin 3.90 H Albumin/Globulin Ratio 1.05 Subjective 24 Hr Interval Summary Free Text/Dictation No complaints Comfortable Exam/Review of Systems Exam Vitals Vital Signs Date Temp Pulse Resp B/P (MAP) Pulse Ox O2 O2 Flow FiO2 Time Delivery Rate 12/29/18 98.8 72 20 128/60 99 Room Air 12:01 (82) Intake and Output 12/28/18 12/28/18 12/29/18 1515:00 23:00 07:00 IntakeIntake Total 350 ml BalanceBalance 350 ml Constitutional: alert, oriented, well developed Psych: no complaints, nl mood/affect Head: normocephalic, atraumatic Eyes: nl conjunctiva, EOMI, nl lids, nl sclera, PERRL ENMT: nl external ears & nose, nl lips & teeth, nl nasal mucosa & septum Neck: supple, non-tender Respiratory: clear to auscultation, normal air movement Cardiovascular: regular rate and rhythm, nl pulses Gastrointestinal: soft, nl liver, spleen, non-tender Musculoskeletal: nl extremities to inspection, nl gait and stance Extremities: normal pulses Neurological: WINDOW DRESSER II-XII intact, nl mental status, nl speech, nl strength Skin: nl turgor; No rash or lesions Lymph: nl lymph nodes Results Results 24hrs Laboratory Tests Test 12/29/18 10:03 White Blood Count 6.3 Red Blood Count 4.72 Hemoglobin 15.1 Hematocrit 44.0 Mean Corpuscular Volume 93.2 Mean Corpuscular Hemoglobin 32.0 Mean Corpuscular Hemoglobin Concent 34.3 Red Cell Distribution Width 12.2 Platelet Count 232 Mean Platelet Volume 9.5 Immature Granulocytes % 0.500 H Neutrophils % 54.3 Lymphocytes % 29.7 Monocytes % 12.9 H Eosinophils % 2.1 Basophils % 0.5 Nucleated Red Blood Cells % 0.0 Immature Granulocytes # 0.030 Neutrophils # 3.4 Lymphocytes # 1.9 Monocytes # 0.8 Eosinophils # 0.1 Basophils # 0.0 Nucleated Red Blood Cells # 0.0 Prothrombin Time 13.2 Prothrombin Time Ratio 1.0 INR International Normalized Ratio 0.99 Activated Partial Thromboplast Time 28.6 Sodium Level 141 Potassium Level 4.5 Chloride Level 105 Carbon Dioxide Level 29 Anion Gap 7 Blood Urea Nitrogen 14 Creatinine 0.94 Est Glomerular Filtrat Rate mL/min Glucose Level 115 Calcium Level 9.4 Magnesium Level 2.1 Total Bilirubin 0.8 Direct Bilirubin 0.00 Indirect Bilirubin 0.8 Aspartate Amino Transf (AST/SGOT) 42 Alanine Aminotransferase (ALT/SGPT) 23 Alkaline Phosphatase 62 Total Protein 8.0 Albumin 4.1 Globulin 3.90 H Albumin/Globulin Ratio 1.05 Medications Medication Current Medications Sodium Chloride 1,000 ml @ 70 mls/hr [id number] IV Last administered on 12/29/18at 01:12; Admin Dose 70 MLS/HR; Start 12/29/18 at 00:31 IV Flush (NS 3 ml) 3 ml PER PROTOCOL IV ; Start 12/29/18 at 01:00 Acetaminophen (Tylenol Tab) 650 mg Q6H PRN PO .PAIN 1-3 OR TEMP; Start 12/29/18 at 01:00 Docusate Sodium (Colace) 100 mg Q12H PRN PO .CONSTIPATION; Start 12/29/18 at 01:00 Bisacodyl (Dulcolax) 5 mg DAILY PRN PO .CONSTIPATION; Start 12/29/18 at 01:00 Levetiracetam (Keppra) 250 mg BID PO Last administered on 12/29/18at 09:41; Admin Dose 250 MG; Start 12/29/18 at 09:00 Hydralazine HCl (Apresoline) 5 mg Q4 PRN IV ELEVATED BLOOD PRESSURE; Start 12/29/18 at 06:00 DESIRE CHENG MD Dec 29, 2018 14:10
--- NOTE | 2018-12-29 16:07 | CONSI ---
Assessment/Plan Assessment/Plan Assessment/Plan (Recall) 78 M c/ reported Hx of dementia, prior stroke, and recurrent falls...among other comorbidities, who presents in Tx from an OSH for continued management of acute traumatic SDHs. The patient is without report of seizures.. Head CT is notable for small bilateral acute SDHs. P: BP control Limit antiplatelets/anticoagulants for at least 7 days from event.. OK to continue Keppra in the short-term, though not technically indicated.. [place] as necessary Limit sedating medications where possible PT/OT as necessary Other management per primary Will follow Consultation Date/Type/Reason Admit Date/Time Dec 28, 2018 at 23:59 Type of Consult Neurology Reason for Consultation SDH Requesting Provider: JACQUES DENNIS Date/Time of Note DATE: 12/29/18 TIME: 16:01 Hx of Present Illness The patient is unable to contribute a Hx. It is elsewhere noted: Chief complaint sent by [facility] for cellulitis and placement The following history was obtained from the chart documentation as patient himself was not able to provide adequate history given his history of dementia and when patient arrived to [facility] he was very agitated as he apparently could not find his $400 that he had with him at the transferring h ospital. The nurse did speak to the transferring facility and they do have the patient's money which was kept with his belongings, they will be arranging for the money to be transported here to the patient. History was obtained from the transfer documentation and previous EMR reports as patient is unable to provide adequate history given his dementia as well as agitation. This is a 78-year-old male with dementia, hypertension, CKD stage II, hyperlipidemia, dementia, and a previous midbrain stroke with residual cn3/CN palsy and a long-standing history of multiple falls due to underlying dizziness who presented to outside hospital after having a fall. In the emergency department patient had a CT of the brain performed which showed evidence of bilateral subdural hematomas with a left side more hyperdense than the right. He was evaluated by neurosurgery and urology. No neurosurgical intervention was recommended at that time, patient was evaluated in the neurosurgical ICU. He was given a loading dose of Keppra as well as DDAVP as he did have aspirin use. He was started on Keppra 250 mg twice daily for seizure prophylaxis. He was monitored in the neurosurgical ICU where he had a repeat CT scan that was apparently stable. He was supposed to be downgraded to telemetry however given his insurance status he was transferred to [facility]. limited by ams Objective Exam Vitals Vital Signs Date Temp Pulse Resp B/P (MAP) Pulse Ox O2 O2 Flow FiO2 Time Delivery Rate 12/29/18 98.2 99 20 135/81 98 Room Air 15:08 (99) Intake and Output 12/28/18 12/28/18 12/29/18 1515:00 23:00 07:00 IntakeIntake Total 350 ml BalanceBalance 350 ml Exam PE: Gen Appearance: No Apparent Distress HEENT: Left periorbital erythema Cardiovascular: Regular rate Abdomen: Soft Extremities: Dry NE: The patient was lethargic and sparsely verbal...able to say own name and follow simple commands. Cranial nerve examination was limited by mental status. Pupils were equal and reactive to light. There was no afferent pupillary defect. Funduscopic ex amination was limited. Face was grossly symmetric, w/ present corneal reflexes. Tone was normal. Muscle bulk was normal. I did not see fasciculations. The patient moved his limbs with good strength. Coordination and gait testing was limited by mental status. Arm and leg reflexes were symmetric. Franco's sign was absent. Plantar responses were flexor. Results Result Diagram: 12/29/18 1003 12/29/18 1003 Results 24hrs Laboratory Tests Test 12/29/18 10:03 White Blood Count 6.3 Red Blood Count 4.72 Hemoglobin 15.1 Hematocrit 44.0 Mean Corpuscular Volume 93.2 Mean Corpuscular Hemoglobin 32.0 Mean Corpuscular Hemoglobin Concent 34.3 Red Cell Distribution Width 12.2 Platelet Count 232 Mean Platelet Volume 9.5 Immature Granulocytes % 0.500 H Neutrophils % 54.3 Lymphocytes % 29.7 Monocytes % 12.9 H Eosinophils % 2.1 Basophils % 0.5 Nucleated Red Blood Cells % 0.0 Immature Granulocytes # 0.030 Neutrophils # 3.4 Lymphocytes # 1.9 Monocytes # 0.8 Eosinophils # 0.1 Basophils # 0.0 Nucleated Red Blood Cells # 0.0 Prothrombin Time 13.2 Prothrombin Time Ratio 1.0 INR International Normalized Ratio 0.99 Activated Partial Thromboplast Time 28.6 Sodium Level 141 Potassium Level 4.5 Chloride Level 105 Carbon Dioxide Level 29 Anion Gap 7 Blood Urea Nitrogen 14 Creatinine 0.94 Est Glomerular Filtrat Rate mL/min Glucose Level 115 Calcium Level 9.4 Magnesium Level 2.1 Total Bilirubin 0.8 Direct Bilirubin 0.00 Indirect Bilirubin 0.8 Aspartate Amino Transf (AST/SGOT) 42 Alanine Aminotransferase (ALT/SGPT) 23 Alkaline Phosphatase 62 Total Protein 8.0 Albumin 4.1 Globulin 3.90 H Albumin/Globulin Ratio 1.05 Past Medical History reviewed Home Meds Active Scripts Quetiapine Fumarate* (Quetiapine Fumarate*) 25 Mg Tablet, 25 MG PO BID, #60 TAB 1 Refill Prov:LUCRETIALORI 07/22/18 Aspirin (Aspirin) 81 Mg Chew, 81 MG PO DAILY, #60 TAB Prov:LORI BOYKIN 07/22/18 Atorvastatin* (Atorvastatin*) 40 Mg Tablet, 40 MG PO HS, #60 TAB Prov:LORI BOYKIN 07/22/18 Medications Current Medications IV Flush (NS 3 ml) 3 ml PER PROTOCOL IV ; Start 12/29/18 at 01:00 Acetaminophen (Tylenol Tab) 650 mg Q6H PRN PO .PAIN 1-3 OR TEMP; Start 12/29/18 at 01:00 Docusate Sodium (Colace) 100 mg Q12H PRN PO .CONSTIPATION; Start 12/29/18 at 01:00 Bisacodyl (Dulcolax) 5 mg DAILY PRN PO .CONSTIPATION; Start 12/29/18 at 01:00 Levetiracetam (Keppra) 250 mg BID PO Last administered on 12/29/18at 09:41; Admin Dose 250 MG; Start 12/29/18 at 09:00 Hydralazine HCl (Apresoline) 5 mg Q4 PRN IV ELEVATED BLOOD PRESSURE; Start 12/06 11/22 at 06:00 Allergies: Coded Allergies: lisinopril (Verified Allergy, Severe, 12/29/18) Lip swelling Social History Smoking Status: Unknown if ever smoked LA LONG Dec 29, 2018 16:07
[2018-12-29] MEDS ORDERED: HALOPERIDOL 5 MG INJ IM PRN (20:30)
[2018-12-30] VITALS (10 sets, daily range): BP systolic 126–147; BP diastolic 58–81; PULSE 71–92; RESP 18–20
[2018-12-30] MEDS: LEVETIRACETAM 250 MG TAB PO SCH ×2 (08:35→22:25)
--- NOTE | 2018-12-30 13:21 | CONS ---
Assessment/Plan Assessment/Plan Assessment/Plan (Recall) 78 M c/ reported Hx of dementia, prior stroke, and recurrent falls...among other comorbidities, who presents in Tx from an OSH for continued management of acute traumatic SDHs. The patient is without report of seizures.. Head CT is notable for small bilateral acute SDHs. P: BP control Limit antiplatelets/anticoagulants for at least 7 days from event.. OK to continue Keppra in the short-term, though not technically indicated.. [place] as necessary Limit sedating medications where possible PT/OT as necessary Other management per primary Will follow Consultation Date/Type/Reason Admit Date/Time Dec 28, 2018 at 23:59 Type of Consult Neurology Reason for Consultation SDH Requesting Provider: JACQUES DENNIS Date/Time of Note DATE: 12/30/18 TIME: 13:20 24 HR Interval Summary Free Text/Dictation Continues acute care Without complaints today Exam/Review of Systems Exam Vitals Vital Signs Date Temp Pulse Resp B/P (MAP) Pulse Ox O2 O2 Flow FiO2 Time Delivery Rate 12/30/18 98.7 82 18 144/74 96 Room Air 11:35 (97) Intake and Output 12/29/18 12/29/18 12/30/18 1515:00 23:00 07:00 IntakeIntake Total 100 ml 500 ml OutputOutput Total 1400 ml 1400 ml BalanceBalance -1400 ml 100 ml -900 ml Exam PE: Gen Appearance: No Apparent Distress HEENT: Normocephalic Cardiovascular: Regular rate Abdomen: Soft Extremities: Dry NE: The patient was alert and oriented to person. Language was normal. Fund of knowledge was limited. Pupils were equal and reactive to light. There was no afferent pupillary defect. Visual zarco were normal. Funduscopic examination was limited. Extra-ocular movements were full. Ptosis was absent. There was no nystagmus. Facial sensation was normal. Face was symmetric with normal strength. Hearing was intact. Palate movements were normal. Neck strength was normal. There was normal tongue bulk a nd speed of movement. Tone was normal. Muscle bulk was normal. I did not see fasciculations. Arms and legs were symmetric. Vibration sensation was normal. Temperature and pinprick sensation was normal. Rapid alternating movements were normal. There was no dysmetria. There was no intention tremor. Gait was deferred due to bedrest. Arm and leg reflexes were symmetric. Franco's sign was absent. Plantar responses were flexor. Results Result Diagram: 12/29/18 1003 12/29/18 1003 Results 24hrs Laboratory Tests Test 12/30/18 06:40 12/30/18 06:41 Hemoglobin A1c 5.6 Magnesium Level 1.9 Triglycerides Level 92 Cholesterol Level 160 LDL Cholesterol, Calculated 88 HDL Cholesterol 54 Cholesterol/HDL Ratio 2.9 Thyroid Stimulating Hormone (TSH) 0.478 Medications Medication Current Medications IV Flush (NS 3 ml) 3 ml PER PROTOCOL IV ; Start 12/29/18 at 01:00 Acetaminophen (Tylenol Tab) 650 mg Q6H PRN PO .PAIN 1-3 OR TEMP; Start 12/29/18 at 01:00 Docusate Sodium (Colace) 100 mg Q12H PRN PO .CONSTIPATION; Start 12/29/18 at 01:00 Bisacodyl (Dulcolax) 5 mg DAILY PRN PO .CONSTIPATION; Start 12/29/18 at 01:00 Levetiracetam (Keppra) 250 mg BID PO Last administered on 12/30/18at 08:35; Admin Dose 250 MG; Start 12/29/18 at 09:00 Hydralazine HCl (Apresoline) 5 mg Q4 PRN IV ELEVATED BLOOD PRESSURE; Start 12/29/18 at 06:00 LA LONG 26, 2019 13:21
--- NOTE | 2018-12-30 14:25 | PN ---
Date/Time of Note Date/Time of Note DATE: 12/30/18 TIME: 14:24 Assessment/Plan VTE Prophylaxis Risk score (from Nsg)>0 risk: 5 SCD applied (from Nsg): Yes Pharmacological prophylaxis: NA/contraindicated Pharm contraindication: bleeding Lines/Catheters IV Catheter Type (from Nrsg): Saline Lock Urinary Cath still in place: No Assessment/Plan Hospital Course 78 yo male with h/o cognitive impairment, h/o SDH who presented to [facility] after fall. Found to have b/l SDH without midline shift. Nonoperative. Transferred to [facility] for optimizatoin and placement. 1. Acute on subacute bilateral subdural hemorrhage: CT on 12/27 showed acute on subacute bilateral subdural hemorrhage, measuring 6 mm thick on the left and 5 mm thick on the right. No midline shift. Repeat CT brain on 12/28 showed that the hemorrhage was stable. - Avoid AC or antiplatelets - Dr Dayton blake 2. 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 At the current time we will continue statin. Will hold aspirin given patient's subdural hemorrhage. 3. History of choreoathetotic movements chronic: Apparently patient has been having orthotic movement for the last 5 years. Recommend patch the left eye. 4. Dementia: previous MRI of the brain showed global decrease in cortex. 5. BPH: Continue tamsulosin 6. CKD stage II creatinine baseline was 1.1. 7. Hyperlipidemia: Continue statin DVT GI prophylaxis: SCDs, no GI prophylaxis indicated Disposition: PT/OT evaluation. Further treatment strategy will be implemented as per the clinical course. Result Diagram: 12/29/18 1003 12/29/18 1003 Results 24hrs Laboratory Tests Test 12/30/18 06:40 12/30/18 06:41 Hemoglobin A1c 5.6 Magnesium Level 1.9 Triglycerides Level 92 Cholesterol Level 160 LDL Cholesterol, Calculated 88 HDL Cholesterol 54 Cholesterol/HDL Ratio 2.9 Thyroid Stimulating Hormone (TSH) 0.478 Subjective 24 Hr Interval Summary Free Text/Dictation Very unsteady on his feet Working with PT Denies complaitns Exam/Review of Systems Exam Vitals Vital Signs Date Temp Pulse Resp B/P (MAP) Pulse Ox O2 O2 Flow FiO2 Time Delivery Rate 12/30/18 92 12:00 12/30/18 98.7 18 144/74 96 Room Air 11:35 (97) Intake and Output 12/29/18 12/29/18 12/30/18 1515:00 23:00 07:00 IntakeIntake Total 100 ml 500 ml OutputOutput Total 1400 ml 1400 ml BalanceBalance -1400 ml 100 ml -900 ml Results Results 24hrs Laboratory Tests Test 12/30/18 06:40 12/30/18 06:41 Hemoglobin A1c 5.6 Magnesium Level 1.9 Triglycerides Level 92 Cholesterol Level 160 LDL Cholesterol, Calculated 88 HDL Cholesterol 54 Cholesterol/HDL Ratio 2.9 Thyroid Stimulating Hormone (TSH) 0.478 Medications Medication Current Medications IV Flush (NS 3 ml) 3 ml PER PROTOCOL IV ; Start 12/29/18 at 01:00 Acetaminophen (Tylenol Tab) 650 mg Q6H PRN PO .PAIN 1-3 OR TEMP; Start 12/29/18 at 01:00 Docusate Sodium (Colace) 100 mg Q12H PRN PO .CONSTIPATION; Start 12/29/18 at 01:00 Bisacodyl (Dulcolax) 5 mg DAILY PRN PO .CONSTIPATION; Start 12/29/18 at 01:00 Levetiracetam (Keppra) 250 mg BID PO Last administered on 12/30/18at 08:35; Admin Dose 250 MG; Start 12/29/18 at 09:00 Hydralazine HCl (Apresoline) 5 mg Q4 PRN IV ELEVATED BLOOD PRESSURE; Start 12/29/18 at 06:00 DESIRE CHENG MD Dec 30, 2018 14:25
--- NOTE | 2018-12-30 17:36 | PSY ---
Date/Time of Note Date/Time of Note DATE: 12/30/18 TIME: 17:28 Psychiatric Subjective Eval Consent Pt consented to telemedicine: No Subjective Evaluation Patient location: inpatient History of present illness Patient is a 78-year-old male with underlying medical issues of hypertension, CKD stage II, and hyperlipidemia. On a [id number] evaluation, patient is Hong [place]er-speaking only and translation done by staff. Patient is alert with periods of disorganized and confused thoughts Mini-Mental status exam done and patient scored 19/30. He goes off on tangents and cannot process information. Patient does not have the capacity to make decisions Past psychiatric history Denies Hospitalization: other Allergies: Coded Allergies: lisinopril (Verified Allergy, Severe, 12/29/18) Lip swelling Substance Abuse Substance abuse history: No Prior substance abuse treatmen: No Social History Marital status: other DPA/Conservatorship: No Psychiatric Objective Eval Mental Status Examination: Laboratory Results Laboratory Tests Test 12/29/18 10:03 12/30/18 06:40 12/30/18 06:41 White Blood Count 6.3 10^3/ul Red Blood Count 4.72 10^6/ul Hemoglobin 15.1 g/dl Hematocrit 44.0 % Mean Corpuscular Volume 93.2 fl Mean Corpuscular Hemoglobin 32.0 pg Mean Corpuscular 34.3 g/dl Hemoglobin Concent Red Cell Distribution Width 12.2 % Platelet Count 232 10^3/UL Mean Platelet Volume 9.5 fl Immature Granulocytes % 0.500 % Neutrophils % 54.3 % Lymphocytes % 29.7 % Monocytes % 12.9 % Eosinophils % 2.1 % Basophils % 0.5 % Nucleated Red Blood Cells % 0.0 /100WBC Immature Granulocytes # 0.030 10^3/ul Neutrophils # 3.4 10^3/ul Lymphocytes # 1.9 10^3/ul Monocytes # 0.8 10^3/ul Eosinophils # 0.1 10^3/ul Basophils # 0.0 10^3/ul Nucleated Red Blood Cells # 0.0 10^3/ul Prothrombin Time 13.2 Sec Prothrombin Time Ratio 1.0 INR International Normalized Ratio 0.99 Activated Partial Thromboplast 28.6 Sec Time Sodium Level 141 mmol/L Potassium Level 4.5 mmol/L Chloride Level 105 mmol/L Carbon Dioxide Level 29 mmol/L Anion Gap 7 Blood Urea Nitrogen 14 mg/dl Creatinine 0.94 mg/dl Est Glomerular Filtrat Rate mL/min mL/min Glucose Level 115 mg/dl Calcium Level 9.4 mg/dl Magnesium Level 2.1 mg/dl 1.9 mg/dl Total Bilirubin 0.8 mg/dl Direct Bilirubin 0.00 mg/dl Indirect Bilirubin 0.8 mg/dl Aspartate Amino Transf (AST/SGOT) 42 IU/L Alanine 23 IU/L Aminotransferase (ALT/SGPT) Alkaline Phosphatase 62 IU/L Total Protein 8.0 g/dl Albumin 4.1 g/dl Globulin 3.90 g/dl Albumin/Globulin Ratio 1.05 Hemoglobin A1c 5.6 % Triglycerides Level 92 mg/dl Cholesterol Level 160 mg/dl LDL Cholesterol, Calculated 88 mg/dl HDL Cholesterol 54 mg/dl Cholesterol/HDL Ratio 2.9 RATIO Thyroid Stimulating Hormone (TSH) 0.478 MIU/L Assessment and Plan Assessment/Diagnosis Diagnosis Mild cognitive impairment Recommendation/Plan Medication Management Continue current medications Psychotherapy Provide supportive therapy Discharge Disposition: Other Legal Status: Voluntary (Does not meet criteria for 5150 hold) MATTHEW MARCOS NP Dec 30, 2018 17:36
[2018-12-31 01:00] VITALS: BP 130/60; PULSE 80; RESP 20
[2018-12-31 01:15] VITALS: BP 145/90; PULSE 78; RESP 18
[2018-12-31 08:08] VITALS: BP 140/65; PULSE 82
[2018-12-31] MEDS: LEVETIRACETAM 250 MG TAB PO SCH (08:38)
--- NOTE | 2018-12-31 11:39 | CONS ---
Assessment/Plan Assessment/Plan Assessment/Plan (Recall) 78 M c/ reported Hx of dementia, prior stroke, and recurrent falls...among other comorbidities, who presents in Tx from an OSH for continued management of acute traumatic SDHs. The patient is without report of seizures.. Head CT is notable for small bilateral acute SDHs. P: BP control Limit antiplatelets/anticoagulants for at least 7 days from event.. OK to continue Keppra in the short-term, though not technically indicated.. [place] as necessary Limit sedating medications where possible PT/OT as necessary Other management per primary Will follow Consultation Date/Type/Reason Admit Date/Time Dec 28, 2018 at 23:59 Type of Consult Neurology Reason for Consultation SDH Requesting Provider: JACQUES DENNIS Date/Time of Note DATE: 12/31/18 TIME: 11:38 24 HR Interval Summary Free Text/Dictation Continues acute care Exam/Review of Systems Exam Vitals Vital Signs Date Temp Pulse Resp B/P (MAP) Pulse Ox O2 O2 Flow FiO2 Time Delivery Rate 12/31/18 98.4 82 140/65 98 08:08 (90) 12/31/18 18 01:15 12/31/18 Room Air 01:00 Intake and Output 12/30/18 12/30/18 12/31/18 1515:00 23:00 07:00 IntakeIntake Total 1200 ml 100 ml OutputOutput Total 300 ml BalanceBalance 1200 ml -200 ml Results Result Diagram: 12/29/18 1003 12/29/18 1003 Medications Medication Current Medications IV Flush (NS 3 ml) 3 ml PER PROTOCOL IV ; Start 12/29/18 at 01:00 Acetaminophen (Tylenol Tab) 650 mg Q6H PRN PO .PAIN 1-3 OR TEMP; Start 12/29/18 at 01:00 Docusate Sodium (Colace) 100 mg Q12H PRN PO .CONSTIPATION; Start 12/29/18 at 01:00 Bisacodyl (Dulcolax) 5 mg DAILY PRN PO .CONSTIPATION; Start 12/29/18 at 01:00 Levetiracetam (Keppra) 250 mg BID PO Last administered on 12/31/18at 08:38; Admin Dose 250 MG; Start 12/29/18 at 09:00 Hydralazine HCl (Apresoline) 5 mg Q4 PRN IV ELEVATED BLOOD PRESSURE; Start 12/29/18 at 06:00 LA LONG Dec 31, 2018 11:39
--- NOTE | 2018-12-31 15:29 | PN ---
Date/Time of Note Date/Time of Note DATE: 12/31/18 TIME: 15:26 Assessment/Plan VTE Prophylaxis Risk score (from Nsg)>0 risk: 3 SCD applied (from Ns): Yes Pharmacological prophylaxis: NA/contraindicated Pharm contraindication: bleeding Lines/Catheters IV Catheter Type (from Nrsg): Peripheral IV Urinary Cath still in place: No Assessment/Plan Hospital Course 78 yo male with h/o cognitive impairment, h/o SDH who presented to [facility] after fall. Found to have b/l SDH without midline shift. Nonoperative. Transferred to [facility] for optimizatoin and placement. 1. Acute on subacute bilateral subdural hemorrhage: CT on 12/27 showed acute on subacute bilateral subdural hemorrhage, measuring 6 mm thick on the left and 5 mm thick on the right. No midline shift. Repeat CT brain on 12/28 showed that the hemorrhage was stable. - Avoid AC or antiplatelets - Dr Dayton blake 2. 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 At the current time we will continue statin. Will hold aspirin given patient's subdural hemorrhage. 3. History of choreoathetotic movements chronic: Apparently patient has been having orthotic movement for the last 5 years. Recommend patch the left eye. 4. Dementia: previous MRI of the brain showed global decrease in cortex. - No capacity per psychiatry 5. BPH: Continue tamsulosin 6. CKD stage II creatinine baseline was 1.1. 7. Hyperlipidemia: Continue statin DVT GI prophylaxis: SCDs, no GI prophylaxis indicated Disposition: Placement in SNF Result Diagram: 12/29/18 1003 12/29/18 1003 Subjective 24 Hr Interval Summary Free Text/Dictation Wandering hallways Not coherent Psych says no capacity Exam/Review of Systems Exam Vitals Vital Signs Date Temp Pulse Resp B/P (MAP) Pulse Ox O2 O2 Flow FiO2 Time Delivery Rate 12/31/18 98.4 82 140/65 98 08:08 (90) 12/31/18 18 01:15 12/31/18 Room Air 01:00 Intake and Output 12/30/18 12/30/18 12/31/18 1414:59 22:59 06:59 IntakeIntake Total 1200 ml 100 ml OutputOutput Total 300 ml BalanceBalance 1200 ml -200 ml Constitutional: alert, oriented, well developed Psych: no complaints, nl mood/affect Head: normocephalic, atraumatic Eyes: nl conjunctiva, EOMI, nl lids, nl sclera, PERRL ENMT: nl external ears & nose, nl lips & teeth, nl nasal mucosa & septum Neck: supple, non-tender Respiratory: clear to auscultation, normal air movement Cardiovascular: regular rate and rhythm, nl pulses Gastrointestinal: soft, nl liver, spleen, non-tender Musculoskeletal: nl extremities to inspection, nl gait and stance Extremities: normal pulses 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, nl mental status, nl speech, nl strength Skin: nl turgor; No rash or lesions Lymph: nl lymph nodes Medications Medication Current Medications IV Flush (NS 3 ml) 3 ml PER PROTOCOL IV ; Start 12/29/18 at 01:00 Acetaminophen (Tylenol Tab) 650 mg Q6H PRN PO .PAIN 1-3 OR TEMP Last administered on 12/31/18at 13:10; Admin Dose 650 MG; Start 12/29/18 at 01:00 Docusate Sodium (Colace) 100 mg Q12H PRN PO .CONSTIPATION; Start 12/29/18 at 01:00 Bisacodyl (Dulcolax) 5 mg DAILY PRN PO .CONSTIPATION; Start 12/29/18 at 01:00 Levetiracetam (Keppra) 250 mg BID PO Last administered on 12/31/18at 08:38; Admin Dose 250 MG; Start 12/29/18 at 09:00 Hydralazine HCl (Apresoline) 5 mg Q4 PRN IV ELEVATED BLOOD PRESSURE; Start 12/29/18 at 06:00 DESIRE CHENG MD Dec 31, 2018 15:29
[2018-12-31 15:42] VITALS: BP 117/83; PULSE 82; RESP 17
[2018-12-31] MEDS: QUETIAPINE 25 MG TAB PO SCH ×2 (16:02→21:25)
[2018-12-31 20:00] VITALS: BP 124/62; PULSE 72; RESP 18
[2019-01-01 02:00] VITALS: BP 118/64; PULSE 63; RESP 18
[2019-01-01 07:46] VITALS: BP 151/82; PULSE 96; RESP 18
[2019-01-01] MEDS: QUETIAPINE 25 MG TAB PO SCH ×2 (08:58→20:05)
[2019-01-01 13:38] VITALS: BP 126/70; PULSE 93; RESP 18
--- NOTE | 2019-01-01 16:31 | PN ---
Date/Time of Note Date/Time of Note DATE: 01/01/19 TIME: 16:30 Assessment/Plan VTE Prophylaxis Risk score (from Nsg)>0 risk: 3 SCD applied (from Nsg): Yes Pharmacological prophylaxis: heparin Lines/Catheters IV Catheter Type (from Nrsg): Peripheral IV Urinary Cath still in place: No Assessment/Plan Hospital Course 78 yo male with h/o cognitive impairment, h/o SDH who presented to [facility] after fall. Found to have b/l SDH without midline shift. Nonoperative. Transferred to [facility] for optimizatoin and placement. Acute on subacute bilateral subdural hemorrhage: CT on 12/27 showed acute on subacute bilateral subdural hemorrhage, measuring 6 mm thick on the left and 5 mm thick on the right. No midline shift. Repeat CT brain on 12/28 showed that the hemorrhage was stable. - Avoid AC or antiplatelets - Dr Dayton blake 2. 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 At the current time we will continue statin. Will hold aspirin given patient's subdural hemorrhage. Dementia: previous MRI of the brain showed global decrease in cortex. - No capacity per psychiatry 5. BPH: Continue tamsulosin 6. CKD stage II creatinine baseline was 1.1. 7. Hyperlipidemia: Continue statin DVT GI prophylaxis: SCDs, no GI prophylaxis indicated Disposition: Placement in SNF Result Diagram: 12/29/18 1003 12/29/18 1003 Subjective 24 Hr Interval Summary Free Text/Dictation Calm No events Awaiting placement Exam/Review of Systems Exam Vitals Vital Signs Date Temp Pulse Resp B/P (MAP) Pulse Ox O2 O2 Flow FiO2 Time Delivery Rate 01/01/19 98.7 93 18 126/70 98 13:38 (88) 12/31/18 Room Air 01:00 Intake and Output 12/31/18 12/31/18 01/01/19 1515:00 23:00 07:00 IntakeIntake Total 1000 ml 640 ml OutputOutput Total 700 ml 400 ml BalanceBalance 300 ml 240 ml Constitutional: alert, oriented, well developed Psych: no complaints, nl mood/affect Head: normocephalic, atraumatic Eyes: nl conjunctiva, EOMI, nl lids, nl sclera, PERRL ENMT: nl external ears & nose, nl lips & teeth, nl nasal mucosa & septum Neck: supple, non-tender Respiratory: clear to auscultation, normal air movement Cardiovascular: regular rate and rhythm, nl pulses Gastrointestinal: soft, nl liver, spleen, non-tender Musculoskeletal: nl extremities to inspection, nl gait and stance Extremities: normal pulses 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, nl mental status, nl speech, nl strength Skin: nl turgor; No rash or lesions Lymph: nl lymph nodes Medications Medication Current Medications IV Flush (NS 3 ml) 3 ml PER PROTOCOL IV ; Start 12/29/18 at 01:00 Acetaminophen (Tylenol Tab) 650 mg Q6H PRN PO .PAIN 1-3 OR TEMP Last administered on 12/31/18at 13:10; Admin Dose 650 MG; Start 12/29/18 at 01:00 Docusate Sodium (Colace) 100 mg Q12H PRN PO .CONSTIPATION; Start 12/29/18 at 01:00 Bisacodyl (Dulcolax) 5 mg DAILY PRN PO .CONSTIPATION; Start 12/29/18 at 01:00 Hydralazine HCl (Apresoline) 5 mg Q4 PRN IV ELEVATED BLOOD PRESSURE; Start 12/29/18 at 06:00 Quetiapine Fumarate (Seroquel) 25 mg BID PO Last administered on 01/01/19at 08:5 8; Admin Dose 25 MG; Start 12/31/18 at 15:30 DESIRE CHENG MD Jan 01, 2019 16:31
[2019-01-01 19:50] VITALS: BP 147/69; PULSE 95; RESP 18
[2019-01-02 02:46] VITALS: BP 129/73; PULSE 75; RESP 18
[2019-01-02 08:47] VITALS: BP 180/76; PULSE 96; RESP 18
[2019-01-02] MEDS: QUETIAPINE 25 MG TAB PO SCH ×2 (09:10→20:01)
--- NOTE | 2019-01-02 09:48 | CONS ---
Assessment/Plan Assessment/Plan Assessment/Plan (Recall) 78 M c/ reported Hx of dementia, prior stroke, and recurrent falls...among other comorbidities, who presents in Tx from an OSH for continued management of acute traumatic SDHs. The patient is without report of seizures.. Head CT is notable for small bilateral acute SDHs. P: BP control Limit antiplatelets/anticoagulants for at least 7 days from event.. OK to continue Keppra in the short-term, though not technically indicated.. [place] as necessary Limit sedating medications where possible PT/OT as necessary Other management per primary Will follow Consultation Date/Type/Reason Admit Date/Time Dec 28, 2018 at 23:59 Type of Consult Neurology Reason for Consultation SDH Requesting Provider: JACQUES DENNIS Date/Time of Note DATE: 01/02/19 TIME: 09:48 24 HR Interval Summary Free Text/Dictation Continues acute care Exam/Review of Systems Exam Vitals Vital Signs Date Temp Pulse Resp B/P (MAP) Pulse Ox O2 O2 Flow FiO2 Time Delivery Rate 01/02/19 97.6 96 18 180/76 98 Room Air 08:47 (110) Intake and Output 01/01/19 01/01/19 01/02/19 1515:00 23:00 07:00 IntakeIntake Total 360 ml BalanceBalance 360 ml Results Result Diagram: 12/29/18 1003 12/29/18 1003 Medications Medication Current Medications IV Flush (NS 3 ml) 3 ml PER PROTOCOL IV Last administered on 01/02/19at 09:11; Admin Dose 3 ML; Start 12/29/18 at 01:00 Acetaminophen (Tylenol Tab) 650 mg Q6H PRN PO .PAIN 1-3 OR TEMP Last administered on 12/31/18at 13:10; Admin Dose 650 MG; Start 12/29/18 at 01:00 Docusate Sodium (Colace) 100 mg Q12H PRN PO .CONSTIPATION; Start 12/29/18 at 01:00 Bisacodyl (Dulcolax) 5 mg DAILY PRN PO .CONSTIPATION; Start 12/29/18 at 01:00 Hydralazine HCl (Apresoline) 5 mg Q4 PRN IV ELEVATED BLOOD PRESSURE Last administered on 01/02/19at 09:11; Admin Dose 5 MG; Start 12/29/18 at 06:00 Quetiapine Fumarate (Seroquel) 25 mg BID PO Last administered on 01/02/19at 09:10; Admin Dose 25 MG; Start 12/31/18 at 15:30 LA LONG Jan 02, 2019 09:48
--- NOTE | 2019-01-02 14:12 | PN ---
Date/Time of Note Date/Time of Note DATE: 01/02/19 TIME: 14:12 Assessment/Plan VTE Prophylaxis Risk score (from Nsg)>0 risk: 3 SCD applied (from Nsg): Yes Pharmacological prophylaxis: heparin Lines/Catheters IV Catheter Type (from Nrsg): Saline Lock Urinary Cath still in place: No Assessment/Plan Hospital Course Calm RRR CTAB Soft nt nd wwp no cce 78 yo male with h/o dementia, h/o SDH who presented to [facility] after fall. Found to have b/l SDH without midline shift. Nonoperative. Transferred to [facility] for optimizatoin and placement. Acute on subacute bilateral subdural hemorrhage: CT on 12/27 showed acute on subacute bilateral subdural hemorrhage, measuring 6 mm thick on the left and 5 mm thick on the right. No midline shift. Repeat CT brain on 12/28 showed that th e hemorrhage was stable. - Avoid AC or antiplatelets - Dr Dayton blake 2. 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 At the current time we will continue statin. Will hold aspirin given patient's subdural hemorrhage. Dementia: previous MRI of the brain showed global decrease in cortex. - No capacity per psychiatry 5. BPH: Continue tamsulosin 6. CKD stage II creatinine baseline was 1.1. 7. Hyperlipidemia: Continue statin DVT GI prophylaxis: SCDs, no GI prophylaxis indicated Disposition: Placement in SNF Result Diagram: 12/29/18 1003 12/29/18 1003 Subjective 24 Hr Interval Summary Free Text/Dictation Calm, no change to status Awaiting NH placement Exam/Review of Systems Exam Vitals Vital Signs Date Temp Pulse Resp B/P (MAP) Pulse Ox O2 O2 Flow FiO2 Time Delivery Rate 01/02/19 97.6 96 18 180/76 98 Room Air 08:47 (110) Intake and Output 01/01/19 01/01/19 01/02/19 1515:00 23:00 07:00 IntakeIntake Total 360 ml BalanceBalance 360 ml Medications Medication Current Medications IV Flush (NS 3 ml) 3 ml PER PROTOCOL IV Last administered on 01/02/19at 09:11; Admin Dose 3 ML; Start 12/29/18 at 01:00 Acetaminophen (Tylenol Tab) 650 mg Q6H PRN PO .PAIN 1-3 OR TEMP Last administered on 12/31/18at 13:10; Admin Dose 650 MG; Start 12/29/18 at 01:00 Docusate Sodium (Colace) 100 mg Q12H PRN PO .CONSTIPATION; Start 12/29/18 at 01:00 Bisacodyl (Dulcolax) 5 mg DAILY PRN PO .CONSTIPATION; Start 12/29/18 at 01:00 Hydralazine HCl (Apresoline) 5 mg Q4 PRN IV ELEVATED BLOOD PRESSURE Last administered on 01/02/19at 09:11; Admin Dose 5 MG; Start 12/29/18 at 06:00 Quetiapine Fumarate (Seroquel) 25 mg BID PO Last administered on 01/02/19at 09:10; Admin Dose 25 MG; Start 12/31/18 at 15:30 DESIRE CHENG MD Jan 02, 2019 14:12
[2019-01-02 19:58] VITALS: BP 148/78; PULSE 75; RESP 18
[2019-01-03 01:48] VITALS: BP 134/74; PULSE 80; RESP 18
[2019-01-03 07:38] VITALS: BP 141/74; PULSE 78; RESP 18
[2019-01-03] MEDS: QUETIAPINE 25 MG TAB PO SCH ×2 (08:12→20:08)
[2019-01-03 14:00] VITALS: BP 115/58; PULSE 82; RESP 18
--- NOTE | 2019-01-03 19:09 | PN ---
Date/Time of Note Date/Time of Note DATE: 01/03/19 TIME: 19:08 Assessment/Plan VTE Prophylaxis Risk score (from Nsg)>0 risk: 3 SCD applied (from Nsg): Yes Pharmacological prophylaxis: heparin Lines/Catheters IV Catheter Type (from Nrsg): Peripheral IV Urinary Cath still in place: No Assessment/Plan Hospital Course Calm RRR CTAB Soft nt nd wwp no cce 78 yo male with h/o dementia, h/o SDH who presented to [facility] after fall. Found to have b/l SDH without midline shift. Nonoperative. Transferred to [facility] for optimizatoin and placement. With dementia and unable to care for himself. Stable and waiting for placement Acute on subacute bilateral subdural hemorrhage: CT on 12/27 showed acute on subacute bilateral subdural hemorrhage, measuring 6 mm thick on the left and 5 mm thick on the right. No midline shift. Repeat CT brain on 12/28 showed that the hemorrhage was stable. - Avoid AC or antiplatelets - Dr Dayton blake 2. 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 At the current time we will continue statin. Will hold aspirin given patient's subdural hemorrhage. Dementia: previous MRI of the brain showed global decrease in cortex. - No capacity per psychiatry 5. BPH: Continue tamsulosin 6. CKD stage II creatinine baseline was 1.1. 7. Hyperlipidemia: Continue statin DVT GI prophylaxis: SCDs, no GI prophylaxis indicated Disposition: Placement in SNF Subjective 24 Hr Interval Summary Free Text/Dictation No events Awaiting placement Exam/Review of Systems Exam Vitals Vital Signs Date Temp Pulse Resp B/P (MAP) Pulse Ox O2 O2 Flow FiO2 Time Delivery Rate 01/03/19 98.0 82 18 115/58 99 Room Air 14:00 (98) 82 Intake and Output 01/02/19 01/02/19 01/03/19 1515:00 23:00 07:00 IntakeIntake Total 720 ml 480 ml BalanceBalance 720 ml 480 ml Medications Medication Current Medications IV Flush (NS 3 ml) 3 ml PER PROTOCOL IV Last administered on 01/02/19at 09:11; Admin Dose 3 ML; Start 12/29/18 at 01:00 Acetaminophen (Tylenol Tab) 650 mg Q6H PRN PO .PAIN 1-3 OR TEMP Last administered on 12/31/18at 13:10; Admin Dose 650 MG; Start 12/29/18 at 01:00 Docusate Sodium (Colace) 100 mg Q12H PRN PO .CONSTIPATION; Start 12/29/18 at 01:00 Bisacodyl (Dulcolax) 5 mg DAILY PRN PO .CONSTIPATION; Start 12/29/18 at 01:00 Hydralazine HCl (Apresoline) 5 mg Q4 PRN IV ELEVATED BLOOD PRESSURE Last administered on 01/02/19 09:11; Admin Dose 5 MG; Start 12/29/18 at 06:00 Quetiapine Fumarate (Seroquel) 25 mg BID PO Last administered on 01/03/19 08:12; Admin Dose 25 MG; Start 12/31/18 at 15:30 DESIRE CHENG MD Jan 03, 2019 19:09
[2019-01-03 20:00] VITALS: BP 157/79; PULSE 79; RESP 19
[2019-01-04 02:12] VITALS: BP 128/68; PULSE 78; RESP 17
[2019-01-04 07:47] VITALS: BP 109/71; PULSE 85; RESP 18
[2019-01-04] MEDS: QUETIAPINE 25 MG TAB PO SCH ×2 (09:28→20:16)
--- NOTE | 2019-01-04 12:23 | CONS ---
Assessment/Plan Assessment/Plan Assessment/Plan (Recall) 78 M c/ reported Hx of dementia, prior stroke, and recurrent falls...among other comorbidities, who presents in Tx from an OSH for continued management of acute traumatic SDHs. The patient is without report of seizures.. Head CT is notable for small bilateral acute SDHs. P: Mullan as necessary Limit sedating medications where possible PT/OT as necessary Other management per primary Will sign off for now; please call w/ ?s Consultation Date/Type/Reason Admit Date/Time Dec 28, 2018 at 23:59 Type of Consult Neurology Reason for Consultation SDH Requesting Provider: JACQUES DENNIS Date/Time of Note DATE: 01/04/19 TIME: 12:21 24 HR Interval Summary Free Text/Dictation Continues acute care Exam/Review of Systems Exam Vitals Vital Signs Date Temp Pulse Resp B/P (MAP) Pulse Ox O2 O2 Flow FiO2 Time Delivery Rate 01/04/19 98.1 85 18 109/71 100 07:47 (84) 01/03/19 Room Air 14:00 Medications Medication Current Medications IV Flush (NS 3 ml) 3 ml PER PROTOCOL IV Last administered on 01/02/19 09:11; Admin Dose 3 ML; Start 12/29/18 at 01:00 Acetaminophen (Tylenol Tab) 650 mg Q6H PRN PO .PAIN 1-3 OR TEMP Last administered on 12/31/18at 13:10; Admin Dose 650 MG; Start 12/29/18 at 01:00 Docusate Sodium (Colace) 100 mg Q12H PRN PO .CONSTIPATION; Start 12/29/18 at 01:00 Bisacodyl (Dulcolax) 5 mg DAILY PRN PO .CONSTIPATION; Start 12/29/18 at 01:00 Hydralazine HCl (Apresoline) 5 mg Q4 PRN IV ELEVATED BLOOD PRESSURE Last administered on 01/02/19 09:11; Admin Dose 5 MG; Start 12/29/18 at 06:00 Quetiapine Fumarate (Seroquel) 25 mg BID PO Last administered on 01/04/19at 09:28; Admin Dose 25 MG; Start 12/31/18 at 15:30 LA LONG Jan 04, 2019 12:23
[2019-01-04 13:33] VITALS: BP 118/59; PULSE 82; RESP 17
--- NOTE | 2019-01-04 15:49 | PN ---
Date/Time of Note Date/Time of Note DATE: 01/04/19 TIME: 15:47 Assessment/Plan VTE Prophylaxis Risk score (from Nsg)>0 risk: 3 SCD applied (from Ns): Yes Pharmacological prophylaxis: NA/contraindicated Pharm contraindication: bleeding Lines/Catheters IV Catheter Type (from Nrsg): Peripheral IV Urinary Cath still in place: No Assessment/Plan Hospital Course 78 yo male with h/o dementia, h/o SDH who presented to [facility] after fall. Found to have b/l SDH without midline shift. Nonoperative. Transferred to [facility] for op timization and placement. With dementia and unable to care for himself. Stable and waiting for placement 1. Acute on subacute bilateral subdural hemorrhage: CT on 12/27 showed acute on subacute bilateral subdural hemorrhage, measuring 6 mm thick on the left and 5 mm thick on the right. No midline shift. Repeat CT brain on 12/28 showed that the hemorrhage was stable. - Avoid AC or antiplatelets - Dr Burris following 2. 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 At the current time we will continue statin. Will hold aspirin given patient's subdural hemorrhage. 3. Dementia: previous MRI of the brain showed global decrease in cortex. - No capacity per psychiatry 4. BPH: Continue tamsulosin 5. CKD stage II creatinine baseline was 1.1. 6. Hyperlipidemia: Continue statin DVT GI prophylaxis: SCDs, no GI prophylaxis indicated Disposition: Placement in SNF Subjective 24 Hr Interval Summary Constitutional: no complaints Exam/Review of Systems Exam Vitals Vital Signs Date Temp Pulse Resp B/P (MAP) Pulse Ox O2 O2 Flow FiO2 Time Delivery Rate 01/04/19 97.5 82 17 118/59 98 13:33 (78) 01/03/19 Room Air 14:00 Constitutional: alert Respiratory: clear to auscultation Cardiovascular: regular rate and rhythm Gastrointestinal: soft; No distended Musculoskeletal: nl extremities to inspection Medications Medication Current Medications IV Flush (NS 3 ml) 3 ml PER PROTOCOL IV Last administered on 01/02/19at 09:11; Admin Dose 3 ML; Start 12/29/18 at 01:00 Acetaminophen (Tylenol Tab) 650 mg Q6H PRN PO .PAIN 1-3 OR TEMP Last administered on 12/31/18at 13:10; Admin Dose 650 MG; Start 12/29/18 at 01:00 Docusate Sodium (Colace) 100 mg Q12H PRN PO .CONSTIPATION; Start 12/29/18 at 01:00 Bisacodyl (Dulcolax) 5 mg DAILY PRN PO .CONSTIPATION; Start 12/29/18 at 01:00 Hydralazine HCl (Apresoline) 5 mg Q4 PRN IV ELEVATED BLOOD PRESSURE Last administered on 01/02/19at 09:11; Admin Dose 5 MG; Start 12/29/18 at 06:00 Quetiapine Fumarate (Seroquel) 25 mg BID PO Last administered on 01/04/19at 09:28; Admin Dose 25 MG; Start 12/31/18 at 15:30 LORI BOYKIN Jan 04, 2019 15:49
[2019-01-04 19:36] VITALS: BP 140/79; PULSE 91; RESP 19
[2019-01-05 02:15] VITALS: BP 111/62; PULSE 70; RESP 18
[2019-01-05 07:40] VITALS: BP 148/83; PULSE 75; RESP 15
[2019-01-05] MEDS: QUETIAPINE 25 MG TAB PO SCH ×2 (09:03→21:00)
[2019-01-05 14:08] VITALS: BP 120/77; PULSE 82; RESP 15
--- NOTE | 2019-01-05 14:37 | PN ---
Date/Time of Note Date/Time of Note DATE: 01/05/19 TIME: 14:36 Assessment/Plan VTE Prophylaxis Risk score (from Nsg)>0 risk: 3 Pharmacological prophylaxis: NA/contraindicated Pharm contraindication: low risk/ambulating Lines/Catheters IV Catheter Type (from Nrsg): Peripheral IV Urinary Cath still in place: No Assessment/Plan Hospital Course 78 yo male with h/o dementia, h/o SDH who presented to [facility] after fall. Found to have b/l SDH without midline shift. Nonoperative. Transferred to [facility] for optimization and placement. With dementia and unable to care for himself. Stable and waiting for placement 1. Acute on subacute bilateral subdural hemorrhage: CT on 12/27 showed acute on subacute bilateral subdural hemorrhage, measuring 6 mm thick on the left and 5 mm thick on the right. No midline shift. Repeat CT brain on 12/28 showed that the hemorrhage was stable. - Avoid AC or antiplatelets - Dr Burris following 2. 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 At the current time we will continue statin. Will hold aspirin given patient's subdural hemorrhage. 3. Dementia: previous MRI of the brain showed global decrease in cortex. - No capacity per psychiatry 4. BPH: Continue tamsulosin 5. CKD stage II creatinine baseline was 1.1. 6. Hyperlipidemia: Continue statin DVT GI prophylaxis: SCDs, no GI prophylaxis indicated Disposition: Placement in SNF Subjective 24 Hr Interval Summary Constitutional: no complaints Exam/Review of Systems Exam Vitals Vital Signs Date Temp Pulse Resp B/P (MAP) Pulse Ox O2 O2 Flow FiO2 Time Delivery Rate 01/05/19 98.7 82 15 120/77 99 Room Air 14:08 (91) Intake and Output 01/04/19 01/04/19 01/05/19 1515:00 23:00 07:00 IntakeIntake Total 360 ml 360 ml BalanceBalance 360 ml 360 ml Constitutional: alert Psych: confusion Respiratory: clear to auscultation Cardiovascular: regular rate and rhythm Gastrointestinal: soft Musculoskeletal: nl extremities to inspection Medications Medication Current Medications IV Flush (NS 3 ml) 3 ml PER PROTOCOL IV Last administered on 01/02/19at 09:11; Admin Dose 3 ML; Start 12/29/18 at 01:00 Acetaminophen (Tylenol Tab) 650 mg Q6H PRN PO .PAIN 1-3 OR TEMP Last administered on 12/31/18at 13:10; Admin Dose 650 MG; Start 12/29/18 at 01:00 Docusate Sodium (Colace) 100 mg Q12H PRN PO .CONSTIPATION; Start 12/29/18 at 01:00 Bisacodyl (Dulcolax) 5 mg DAILY PRN PO .CONSTIPATION; Start 12/29/18 at 01:00 Hydralazine HCl (Apresoline) 5 mg Q4 PRN IV ELEVATED BLOOD PRESSURE Last administered on 01/02/19at 09:11; Admin Dose 5 MG; Start 12/29/18 at 06:00 Quetiapine Fumarate (Seroquel) 25 mg DAILY PO ; Start 01/06/19 at 09:00 Quetiapine Fumarate (Seroquel) 50 mg HS PO ; Start 01/05/19 at 21:00 LROI BOYKIN Jan 05, 2019 14:37
[2019-01-05 19:48] VITALS: BP 108/84; PULSE 69; RESP 18
[2019-01-06 01:47] VITALS: BP 114/74; PULSE 72; RESP 18
[2019-01-06 07:54] VITALS: BP 142/80; PULSE 73; RESP 17
[2019-01-06] MEDS: QUETIAPINE 25 MG TAB PO SCH ×2 (08:59→21:09)
--- NOTE | 2019-01-06 12:59 | PN ---
Date/Time of Note Date/Time of Note DATE: 01/06/19 TIME: 12:59 Assessment/Plan VTE Prophylaxis Risk score (from Nsg)>0 risk: 3 Pharmacological prophylaxis: NA/contraindicated Pharm contraindication: low risk/ambulating Lines/Catheters IV Catheter Type (from Nrsg): Peripheral IV Urinary Cath still in place: No Assessment/Plan Hospital Course 78 yo male with h/o dementia, h/o SDH who presented to [facility] after fall. Found to have b/l SDH without midline shift. Nonoperative. Transferred to [facility] for optimization and placement. With dementia and unable to care for himself. Stable and waiting for placement 1. Acute on subacute bilateral subdural hemorrhage: CT on 12/27 showed acute on subacute bilateral subdural hemorrhage, measuring 6 mm thick on the left and 5 mm thick on the right. No midline shift. Repeat CT brain on 12/28 showed that the hemorrhage was stable. - Avoid AC or antiplatelets - Dr Burris following 2. 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 At the current time we will continue statin. Will hold aspirin given patient's subdural hemorrhage. 3. Dementia: previous MRI of the brain showed global decrease in cortex. - No capacity per psychiatry 4. BPH: Continue tamsulosin 5. CKD stage II creatinine baseline was 1.1. 6. Hyperlipidemia: Continue statin DVT GI prophylaxis: SCDs, no GI prophylaxis indicated Disposition: Placement in SNF Subjective 24 Hr Interval Summary Constitutional: no complaints Exam/Review of Systems Exam Vitals Vital Signs Date Temp Pulse Resp B/P (MAP) Pulse Ox O2 O2 Flow FiO2 Time Delivery Rate 01/06/19 99.0 73 17 142/80 97 Room Air 07:54 (100) Intake and Output 01/05/19 01/05/19 01/06/19 1515:00 23:00 07:00 IntakeIntake Total 400 ml BalanceBalance 400 ml Psych: confusion Respiratory: clear to auscultation Cardiovascular: regular rate and rhythm Gastrointestinal: soft; No distended Musculoskeletal: nl extremities to inspection Medications Medication Current Medications IV Flush (NS 3 ml) 3 ml PER PROTOCOL IV Last administered on 01/02/19at 09:11; Admin Dose 3 ML; Start 12/29/18 at 01:00 Acetaminophen (Tylenol Tab) 650 mg Q6H PRN PO .PAIN 1-3 OR TEMP Last administered on 12/31/18at 13:10; Admin Dose 650 MG; Start 12/29/18 at 01:00 Docusate Sodium (Colace) 100 mg Q12H PRN PO .CONSTIPATION; Start 12/29/18 at 01:00 Bisacodyl (Dulcolax) 5 mg DAILY PRN PO .CONSTIPATION; Start 12/29/18 at 01:00 Hydralazine HCl (Apresoline) 5 mg Q4 PRN IV ELEVATED BLOOD PRESSURE Last administered on 01/02/19at 09:11; Admin Dose 5 MG; Start 12/29/18 at 06:00 Quetiapine Fumarate (Seroquel) 25 mg DAILY PO Last administered on 01/06/19at 08:59; Admin Dose 25 MG; Start 01/06/19 at 09:00 Quetiapine Fumarate (Seroquel) 50 mg HS PO ; Start 01/05/19 at 21:00 LORI BOYKIN Jan 06, 2019 12:59
[2019-01-06 13:34] VITALS: BP 121/64; PULSE 81; RESP 15
[2019-01-06 20:36] VITALS: BP 142/74; PULSE 80; RESP 18
[2019-01-07 01:59] VITALS: BP 132/63; PULSE 70; RESP 18
[2019-01-07 07:40] VITALS: BP 117/64; PULSE 71; RESP 18
[2019-01-07] MEDS: QUETIAPINE 25 MG TAB PO SCH ×2 (09:10→21:00)
--- NOTE | 2019-01-07 13:00 | PN ---
Date/Time of Note Date/Time of Note DATE: 01/07/19 TIME: 13:00 Assessment/Plan VTE Prophylaxis Risk score (from Nsg)>0 risk: 3 Pharmacological prophylaxis: NA/contraindicated Pharm contraindication: low risk/ambulating Lines/Catheters IV Catheter Type (from Nrsg): Peripheral IV Urinary Cath still in place: No Assessment/Plan Hospital Course 78 yo male with h/o dementia, h/o SDH who presented to [facility] after fall. Found to have b/l SDH without midline shift. Nonoperative. Transferred to [facility] for optimization and placement. With dementia and unable to care for himself. Stable and waiting for placement 1. Acute on subacute bilateral subdural hemorrhage: CT on 12/27 showed acute on subacute bilateral subdural hemorrhage, measuring 6 mm thick on the left and 5 mm thick on the right. No midline shift. Repeat CT brain on 12/28 showed that the hemorrhage was stable. - Avoid AC or antiplatelets - Dr Burris following 2. 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 At the current time we will continue statin. Will hold aspirin given patient's subdural hemorrhage. 3. Dementia: previous MRI of the brain showed global decrease in cortex. - No capacity per psychiatry 4. BPH: Continue tamsulosin 5. CKD stage II creatinine baseline was 1.1. 6. Hyperlipidemia: Continue statin DVT GI prophylaxis: SCDs, no GI prophylaxis indicated Disposition: Placement in SNF Subjective 24 Hr Interval Summary Constitutional: disoriented Exam/Review of Systems Exam Vitals Vital Signs Date Temp Pulse Resp B/P (MAP) Pulse Ox O2 O2 Flow FiO2 Time Delivery Rate 01/07/19 97.8 71 18 117/64 95 Room Air 07:40 (81) Intake and Output 01/06/19 01/06/19 01/07/19 1515:00 23:00 07:00 IntakeIntake Total 460 ml BalanceBalance 460 ml Constitutional: alert Psych: confusion Respiratory: clear to auscultation Cardiovascular: regular rate and rhythm Gastrointestinal: soft; No distended Musculoskeletal: nl extremities to inspection Medications Medication Current Medications IV Flush (NS 3 ml) 3 ml PER PROTOCOL IV Last administered on 01/02/19at 09:11; Admin Dose 3 ML; Start 12/29/18 at 01:00 Acetaminophen (Tylenol Tab) 650 mg Q6H PRN PO .PAIN 1-3 OR TEMP Last administered on 12/31/18 13:10; Admin Dose 650 MG; Start 12/29/18 at 01:00 Docusate Sodium (Colace) 100 mg Q12H PRN PO .CONSTIPATION; Start 12/29/18 at 01:00 Bisacodyl (Dulcolax) 5 mg DAILY PRN PO .CONSTIPATION; Start 12/29/18 at 01:00 Hydralazine HCl (Apresoline) 5 mg Q4 PRN IV ELEVATED BLOOD PRESSURE Last administered on 01/02/19at 09:11; Admin Dose 5 MG; Start 12/29/18 at 06:00 Quetiapine Fumarate (Seroquel) 25 mg DAILY PO Last administered on 01/07/19 09:10; Admin Dose 25 MG; Start 01/06/19 at 09:00 Quetiapine Fumarate (Seroquel) 50 mg HS PO Last administered on 01/06/19 21:09; Admin Dose 50 MG; Start 01/05/19 at 21:00 LORI BOYKIN Jan 07, 2019 13:00
[2019-01-07 14:00] VITALS: BP 126/68; PULSE 87; RESP 18
[2019-01-07 19:54] VITALS: BP 140/70; PULSE 79; RESP 18
[2019-01-08 03:52] VITALS: BP 129/63; PULSE 66; RESP 16
[2019-01-08 07:52] VITALS: BP 132/86; PULSE 84; RESP 18
[2019-01-08] MEDS: QUETIAPINE 25 MG TAB PO SCH (08:42)
--- NOTE | 2019-01-08 11:46 | DS ---
Date/Time of Note Date/Time of Note DATE: 01/08/19 TIME: 11:43 Discharge Summary Admission/Discharge Info Admit Date/Time Dec 28, 2018 at 23:59 Discharge Date/Time January 08, 2019 Discharge Diagnosis Patient left AMA 78 yo male with h/o dementia, h/o SDH who presented to [facility] after fall. Found to have b/l SDH without midline shift. Nonoperative. Transferred to [facility] for optim ization and placement. With dementia and unable to care for himself. Stable and waiting for placement 1. Acute on subacute bilateral subdural hemorrhage: CT on 12/27 showed acute on subacute bilateral subdural hemorrhage, measuring 6 mm thick on the left and 5 mm thick on the right. No midline shift. Repeat CT brain on 12/28 showed that the hemorrhage was stable. - Avoid AC or antiplatelets - Dr Burris following 2. 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 At the current time we will continue statin. Will hold aspirin given patient's subdural hemorrhage. 3. Dementia: previous MRI of the brain showed global decrease in cortex. - No capacity per psychiatry the patient wants to leave [facility] and there was no hold on the patient 4. BPH: Continue tamsulosin 5. CKD stage II creatinine baseline was 1.1. 6. Hyperlipidemia: Continue statin Hospital Course Patient is a 78 yo male with h/o dementia, h/o SDH who presented to [facility] after fall. Found to have b/l SDH without midline shift. Nonoperative. Transferred to [facility] for optimization and placement. With dementia and unable to care for himself. Stable and waiting for placement but patient decided to leave AGAINST MEDICAL ADVICE. Patient was being followed by neurology and was seen by psychiatry. Of note repeat CT brain showed subdural hematoma was stable, patient also has a history of left midbrain stroke with residual cranial nerve III and palsy, previous MRI showed global decrease in cortex. Patient became restless did not want to wait for for the placement, oncology social work was involved and no family was able to be found. Due to the lack of 5150 hold patient was allowed to leave AGAINST MEDICAL ADVICE. Home Meds Active Scripts Quetiapine Fumarate* (Quetiapine Fumarate*) 25 Mg Tablet, 25 MG PO BID, #60 TAB 1 Refill Prov:LORI BOYKIN 1/16/19 Aspirin (Aspirin) 81 Mg Chew, 81 MG PO DAILY, #60 TAB Prov:LORI BOYKIN 07/22/18 Atorvastatin* (Atorvastatin*) 40 Mg Tablet, 40 MG PO HS, #60 TAB Prov:LORI BOYKIN 07/22/18 Primary Care Provider Not On Staff Doctor Time spent on discharge: < 30 minutes LORI BOYKIN Jan 08, 2019 11:46
== END 2019-01-08 11:40 | disposition left against medical advice (07) | DRG 87 ==
LOC: TEL 23:59 → 2NE 12-31 01:13 → 5EC 01-01 18:55
PROVIDERS: ADMIT Internal Medicine; ATTEND Internal Medicine
DX: S06.5X0A Traumatic subdural hemorrhage without loss of consciousness, initial encounter (principal); F03.90 Unspecified dementia, unspecified severity, without behavioral disturbance, psychotic disturbance, mood disturbance, and anxiety; I69.398 Other sequelae of cerebral infarction; H49.20 Sixth [abducent] nerve palsy, unspecified eye; H49.00 Third [oculomotor] nerve palsy, unspecified eye; I12.9 Hypertensive chronic kidney disease with stage 1 through stage 4 chronic kidney disease, or unspecified chronic kidney disease; N18.2 Chronic kidney disease, stage 2 (mild); E78.5 Hyperlipidemia, unspecified; N40.0 Benign prostatic hyperplasia without lower urinary tract symptoms; Z87.440 Personal history of urinary (tract) infections; R29.6 Repeated falls; W19.XXXA Unspecified fall, initial encounter
CPT/HCPCS: 70450; 80053; 80061; 83036; 83735; 84443; 85025; 85610; 85730; 87081; 97110; 97116; 97162; 97530; J0360; J1630; J2060; J7030